=== PATIENT | male | born 1965 | race Caucasian/White ===

== ENCOUNTER 2019-07-01 18:12 | Emergency (ER) | payer SELFPAY ==
[2019-07-01 18:13] VITALS: BMI 44.2
--- NOTE | 2019-07-01 18:13 | ED_ITS ---
Documented by User: Erik Thomas DO 07/04/19 06:11 HPI - SOB/Dyspnea General: Chief Complaint: Shortness of Breath/Dyspnea Stated Complaint: SOB FEVER Time Seen by Provider: 07/01/19 18:12 History of Present Illness: HPI Narrative: 54 yo male who presents to the emergency room with a complaint of fever over the last 24 hours. He has myalgias but denies a headache he is developed a chronic cough in the same timeframe. He recently moved here from [place] about 3 days ago. He has not been coughing anything up. He has no chronic underlying respiratory problems and he has no chest pain he has no other symptoms. He has not been exerting himself at all lately. Denies any hemoptysis or purulent sputum. His moved here with him from [place] although she has not had any symptoms. MD elicited complaint: shortness of breath Associated symptoms: Deny abdominal pain, chest pain, fever(s), nausea, orthopnea or vomiting Review of Systems Const: Denies: fever, chills, body aches, change in appetite, fatigue or malaise ENMT: Denies: throat pain, ear pain, nasal discharge or nasal congestion Card: Denies: chest pain, edema, shortness of breath on exertion or shortness of breath when lying down Resp: Denies: shortness of breath, productive cough or non-productive cough GI: Denies: abdominal pain, nausea, vomiting, vomiting blood, coffee grounds in vomit, diarrhea, constipation, bloating, blood in stool or black tarry stool : Denies: flank pain, painful urination, urinary frequency or urinary urgency Skin/Breast: Denies: rash or itching [facility] ED PFSH: Social History Smoking and tobacco status: current every day smoker Physical Exam Const: COMMON NORMALS: no apparent distress GENERAL APPEARANCE: anxious ORIENTATION/CONSCIOUSNESS: Yes awake, Yes oriented to person, Yes oriented to place and Yes oriented to time HENMT: COMMON NORMALS: normocephalic, head/scalp atraumatic, hearing grossly normal bilaterally, external ears normal, EAC's normal, TM's normal bilaterally, nasal mucous membranes and turbinates normal, moist oral mucous membranes and oropharynx normal HEAD & SCALP: normocephalic and atraumatic NOSE: nasal mucous membranes and turbinates normal EXTERNAL EAR: Yes external ears normal EXTERNAL AUDITORY CANAL: EAC's normal TYMPANIC MEMBRANE: TM's normal bilaterally Eye: COMMON NORMALS: PERRL, EOMs intact bilaterally, conjunctivae normal and no scleral icterus CONJUNCTIVA: Yes conjunctivae normal PUPIL: Yes PERRL Neck/C-Spine: COMMON NORMALS: full ROM, no lymphadenopathy, supple and no JVD Lymph: LYMPHATIC: no lymphadenopathy noted and no lymphedema noted Resp: COMMON NORMALS: normal respiratory effort, no retractions, no use of accessory muscles and clear to auscultation bilaterally AUSCULTATION: clear to auscultation bilaterally Cardio: COMMON NORMALS: no JVD, regular rhythm and no murmurs RATE: tachycardic RHYTHM: regular rhythm GI: COMMON NORMALS: soft to palpation and no hepatosplenomegaly AUSCULTATION: Yes normoactive bowel sounds PALPATION: Yes soft, No tender, No guarding and Yes no hepatosplenomegaly Extremity: COMMON NORMALS: normal to inspection, normal capillary refill, no clubbing, cyanosis or edema, no calf tenderness and no pedal edema Neuro: SENSORIUM/ORIENTATION: Yes oriented to person, Yes oriented to place and Yes oriented to time Skin: COMMON NORMALS: no rashes or lesions noted GENERAL SKIN EXAM: no rashes or lesions noted Course Vital Signs: Vital signs: Vital Signs Temperature 102.1 F H 07/01/19 18:17 Pulse Rate 100 07/01/19 21:57 Respiratory Rate 19 H 07/01/19 21:57 Blood Pressure 146/97 07/01/19 21:57 Pulse Oximetry 95 07/01/19 21:57 MDM - SOB/Dyspnea MDM Narrative: Medical decision making narrative: Highly suspicion this particular patient for COVID given his temp. He was extremely anxious and I was doing his history and physical to the point he was making himself hyperventilate and nearly in tears. Coached him to try to slow his breathing down and calm down did advise him we would need him to keep the mask on since we are concerned about him having COVID and we had to mask the source. He was given a gram of Tylenol and 2 mg of Ativan. Care changed over to Dr. Campbell at change of shift. Lab Data: Labs: Lab Results 0407/01/19 07/01/19 Range/Units 18:47 18:58 19:00 WBC 12.0 H (4.0-10.0) 10^3/ uL RBC 4.90 (4.1-5.3) 10^6/u L Hgb 14.1 (11.7-16.6) g/dL Hct 43.3 (42.0-52.0) % MCV 88.4 (80-94) fL MCH 28.8 (28.0-34.0) pg MCHC 32.6 (30.0-36.0) g/dL RDW 14.7 (12.1-15.1) % Plt Count 238 (130-400) 10^3/c mm MPV 9.4 (7.4-10.4) fL Neut % (Auto) 79.2 % Lymph % (Auto) 9.3 % Bibb % (Auto) 9.4 % Eos % (Auto) 1.7 % Baso % (Auto) 0.2 % Neut # (Auto) 9.5 H (1.8-7.7) 10^3/u L Lymph # (Auto) 1.1 (0.8-4.8) 10^3/u L Bibb # (Auto) 1.1 H (0.2-0.9) 10^3/u L Eos # (Auto) 0.2 (0.0-0.8) 10^3/u L Baso # (Auto) 0.0 (0.0-0.1) 10^3/u L Nucleated RBC % (a uto) 0 % Nucleated RBCs # 0.0 /100WBC Sodium 134 L (136-145) mmol/L Potassium 3.7 (3.5-5.1) mmol/L Chloride 100 (98-107) mmol/L Carbon Dioxide 21 L (22-29) mmol/L Anion Gap 16.7 (5-19) BUN 8 (6-20) mg/dL Creatinine 0.9 (0.7-1.2) mg/dL GFR Calculation 87.6 L (90-130) mL/min Glucose 106 (65-115) mg/dL Calculated Osmolal ity 274 L (285-295) mOsm/k g Lactic Acid (0.5-2.2) mmol/L Calcium 9.1 (8.5-10.5) mg/dL Total Bilirubin 0.6 (0.15-1.2) mg/dL AST 19 (0-40) U/L ALT 15 (0-41) U/L Alkaline Phosphata se 77 (40-130) IU/L C-Reactive Protein 36.1 H (0.0-4.9) mg/L Total Protein 7.1 (6.6-8.7) g/dL Albumin 4.0 (3.5-5.2) g/dL Globulin 3.1 (1.3-4.6) g/dL Nasal/Oral COVID-1 9 PCR Influenza Type A A g Negative (Negative) Influenza Type B A g Negative (Negative) 07/01/19 07/01/19 Range/Units 19:00 20:27 WBC (4.0-10.0) 10^3/ uL RBC (4.1-5.3) 10^6/u L Hgb (11.7-16.6) g/dL Hct (42.0-52.0) % MCV (80-94) fL MCH (28.0-34.0) pg MCHC (30.0-36.0) g/dL RDW (12.1-15.1) % Plt Count (130-400) 10^3/c mm MPV (7.4-10.4) fL Neut % (Auto) % Lymph % (Auto) % Bibb % (Auto) % Eos % (Auto) % Baso % (Auto) % Neut # (Auto) (1.8-7.7) 10^3/u L Lymph # (Auto) (0.8-4.8) 10^3/u L Bibb # (Auto) (0.2-0.9) 10^3/u L Eos # (Auto) (0.0-0.8) 10^3/u L Baso # (Auto) (0.0-0.1) 10^3/u L Nucleated RBC % (a uto) % Nucleated RBCs # /100WBC Sodium (136-145) mmol/L Potassium (3.5-5.1) mmol/L Chloride (98-107) mmol/L Carbon Dioxide (22-29) mmol/L Anion Gap (5-19) BUN (6-20) mg/dL Creatinine (0.7-1.2) mg/dL GFR Calculation (90-130) mL/min Glucose (65-115) mg/dL Calculated Osmolal ity (285-295) mOsm/k g Lactic Acid 1.6 (0.5-2.2) mmol/L Calcium (8.5-10.5) mg/dL Total Bilirubin (0.15-1.2) mg/dL AST (0-40) U/L ALT (0-41) U/L Alkaline Phosphata se (40-130) IU/L C-Reactive Protein (0.0-4.9) mg/L Total Protein (6.6-8.7) g/dL Albumin (3.5-5.2) g/dL Globulin (1.3-4.6) g/dL Nasal/Oral COVID-1 9 PCR Negative Influenza Type A A g (Negative) Influenza Type B A g (Negative) Discharge Plan Discharge Patient Disposition: Home, Self-Care Clinical Impression: Bronchitis Condition: Stable Prescriptions: New doxycycline hyclate 100 mg capsule 100 mg PO BID 10 Days Qty: 20 RF: 0 Tessalon Perles 100 mg capsule 100 mg PO TID PRN (Reason: cough) Qty: 30 RF: 0 Discharge Orders: Discharge Order (Routine); Ordered 07/01/19 Ordered By: Sarahi Will Referrals: Adrienne Rico DO [Physician] - 1-3 days Discharge Diet: Advance as tolerated Discharge Activity: Increase activity as tolerated Patient Instructions: Acute Bronchitis (ED) Activity Restrictions/Additional Instructions: Please return to the ER immediately for any of the signs or symptoms listed on your discharge instruction sheets, worsening/changing of your symptoms, you are not getting better as quickly as expected, or for ANY other cause or concerns. You will be called regarding your COVID-19 test as soon as a result is available. Be certain to quarantine yourself at home until the results of this test are given to you. If you test positive further and instructions will be given you. Discharge Date/Time: 07/01/19 21:58 Sign Out Sign Out Data: Patient Sign Out occurred on 07/01/19 at 19:48. Patient's care was discussed, and care was transferred from to Sarahi Will. Coding Level of Care Code ED Welding Equipment Sales Representative for Chg Fwd Exam Comprehensive Documented by User: Sarahi Triplett Nicolette 07/01/19 21:00 HPI - SOB/Dyspnea General: Chief Complaint: Shortness of Breath/Dyspnea Stated Complaint: SOB FEVER Time Seen by Provider: 07/01/19 18:12 PFSH ED PFSH: Social History Smoking and tobacco status: current every day smoker Course Vital Signs: Vital signs: Vital Signs Temperature 102.1 F H 07/01/19 18:17 Pulse Rate 100 07/01/19 21:57 Respiratory Rate 19 H 07/01/19 21:57 Blood Pressure 146/97 07/01/19 21:57 Pulse Oximetry 95 07/01/19 21:57 MDM - SOB/Dyspnea MDM Narrative: Medical decision making narrative: 2100 -Case turned over to me at change of shift from Dr. Thomas. On reexamination at this time the patient is without complaint, his fever is gone and his cough is stopped. He states of all his complaints the cough was the most concerning. His chest x-ray is clear and he is not hypoxic. He does have a fever so I will place him on doxycycline. A coronavirus test was sent and he understands he will be were notified of the result tomorrow. He will quarantine himself at home until the result is known. If he does test positive we will instruct him further. He denies any other questions or concerns and he agrees with this plan. Lab Data: Labs: Lab Results 07/01/19 07/01/19 07/01/19 Range/Units 18:47 18:58 19:00 WBC 12.0 H (4.0-10.0) 10^3/ uL RBC 4.90 (4.1-5.3) 10^6/u L Hgb 14.1 (11.7-16.6) g/dL Hct 43.3 (42.0-52.0) % MCV 88.4 (80-94) fL MCH 28.8 (28.0-34.0) pg MCHC 32.6 (30.0-36.0) g/dL RDW 14.7 (12.1-15.1) % Plt Count 238 (130-400) 10^3/c mm MPV 9.4 (7.4-10.4) fL Neut % (Auto) 79.2 % Lymph % (Auto) 9.3 % Bibb % (Auto) 9.4 % Eos % (Auto) 1.7 % Baso % (Auto) 0.2 % Neut # (Auto) 9.5 H (1.8-7.7) 10^3/u L Lymph # (Auto) 1.1 (0.8-4.8) 10^3/u L Bibb # (Auto) 1.1 H (0.2-0.9) 10^3/u L Eos # (Auto) 0.2 (0.0-0.8) 10^3/u L Baso # (Auto) 0.0 (0.0-0.1) 10^3/u L Nucleated RBC % (a uto) 0 % Nucleated RBCs # 0.0 /100WBC Sodium 134 L (136-145) mmol/L Potassium 3.7 (3.5-5.1) mmol/L Chloride 100 (98-107) mmol/L Carbon Dioxide 21 L (22-29) mmol/L Anion Gap 16.7 (5-19) BUN 8 (6-20) mg/dL Creatinine 0.9 (0.7-1.2) mg/dL GFR Calculation 87.6 L (90-130) mL/min Glucose 106 (65-115) mg/dL Calculated Osmolal ity 274 L (285-295) mOsm/k g Lactic Acid (0.5-2.2) mmol/L Calcium 9.1 (8.5-10.5) mg/dL Total Bilirubin 0.6 (0.15-1.2) mg/dL AST 19 (0-40) U/L ALT 15 (0-41) U/L Alkaline Phosphata se 77 (40-130) IU/L C-Reactive Protein 36.1 H (0.0-4.9) mg/L Total Protein 7.1 (6.6-8.7) g/dL Albumin 4.0 (3.5-5.2) g/dL Globulin 3.1 (1.3-4.6) g/dL Nasal/Oral COVID-1 9 PCR Influenza Type A A g Negative (Negative) Influenza Type B A g Negative (Negative) 07/01/19 07/01/19 Range/Units 19:00 20:27 WBC (4.0-10.0) 10^3/ uL RBC (4.1-5.3) 10^6/u L Hgb (11.7-16.6) g/dL Hct (42.0-52.0) % MCV (80-94) fL MCH (28.0-34.0) pg MCHC (30.0-36.0) g/dL RDW (12.1-15.1) % Plt Count (130-400) 10^3/c mm MPV (7.4-10.4) fL Neut % (Auto) % Lymph % (Auto) % Bibb % (Auto) % Eos % (Auto) % Baso % (Auto) % Neut # (Auto) (1.8-7.7) 10^3/u L Lymph # (Auto) (0.8-4.8) 10^3/u L Bibb # (Auto) (0.2-0.9) 10^3/u L Eos # (Auto) (0.0-0.8) 10^3/u L Baso # (Auto) (0.0-0.1) 10^3/u L Nucleated RBC % (a uto) % Nucleated RBCs # /100WBC Sodium (136-145) mmol/L Potassium (3.5-5.1) mmol/L Chloride (98-107) mmol/L Carbon Dioxide (22-29) mmol/L Anion Gap (5-19) BUN (6-20) mg/dL Creatinine (0.7-1.2) mg/dL GFR Calculation (90-130) mL/min Glucose (65-115) mg/dL Calculated Osmolal ity (285-295) mOsm/k g Lactic Acid 1.6 (0.5-2.2) mmol/L Calcium (8.5-10.5) mg/dL Total Bilirubin (0.15-1.2) mg/dL AST (0-40) U/L ALT (0-41) U/L Alkaline Phosphata se (40-130) IU/L C-Reactive Protein (0.0-4.9) mg/L Total Protein (6.6-8.7) g/dL Albumin (3.5-5.2) g/dL Globulin (1.3-4.6) g/dL Nasal/Oral COVID-1 9 PCR Negative Influenza Type A A g (Negative) Influenza Type B A g (Negative) Discharge Plan Discharge Patient Disposition: Home, Self-Care Clinical Impression: Bronchitis Condition: Stable Prescriptions: New doxycycline hyclate 100 mg capsule 100 mg PO BID 10 Days Qty: 20 RF: 0 Tessalon Perles 100 mg capsule 100 mg PO TID PRN (Reason: cough) Qty: 30 RF: 0 Discharge Orders: Discharge Order (Routine); Ordered 07/01/19 Ordered By: Sarahi Will Referrals: Adrienne Rico DO [Physician] - 1-3 days Discharge Diet: Advance as tolerated Discharge Activity: Increase activity as tolerated Patient Instructions: Acute Bronchitis (ED) Activity Restrictions/Additional Instructions: Please return to the ER immediately for any of the signs or symptoms listed on your discharge instruction sheets, worsening/changing of your symptoms, you are not getting better as quickly as expected, or for ANY other cause or concerns. You will be called regarding your COVID-19 test as soon as a result is available. Be certain to quarantine yourself at home until the results of this test are given to you. If you test positive further and instructions will be given you. Discharge Date/Time: 07/01/19 21:58 Sign Out Sign Out Data: Patient Sign Out occurred on 07/01/19 at 19:48. Patient's care was discussed, and care was transferred from to Sarahi Will. Coding Level of Care Code ED Welding Equipment Sales Representative for Chintan Fwd Exam Comprehensive
--- NOTE | 2019-07-01 18:16 | XR_ITS ---
WS: [id number] PORTABLE CHEST HISTORY: dyspnea/cough COMPARISON: None available. Lungs are clear and well expanded. No pleural effusion or pneumothorax. Cardiac size: Normal. Mediastinum/Aorta: Normal mediastinum. No osseous abnormality seen. XR/XR chest 1V portable [id number] IMPRESSION: Unremarkable portable chest.
--- NOTE | 2019-07-01 18:16 | ECG_ITS ---
Measurements Intervals [place] Rate: 112 P: 58 MS: 136 QRS: -29 QRSD: 96 T: 74 QT: 336 QTc: 459 SINUS TACHYCARDIA BORDERLINE LEFT AXIS DEVIATION [QRS AXIS < -20] MINIMAL VOLTAGE CRITERIA FOR LVH, CONSIDER NORMAL VARIANT [MEETS CRITERIA IN ONE OF: R(aVL), S(V1), R(V5), R(V5/V6)+S(V1)] NONSPECIFIC ST & T-WAVE ABNORMALITY ABNORMAL RHYTHM ECG No previous ECG available for comparison Electronically Signed On 07-02-2019 18:08:03 CDT by Madalyn Fu M.D. [id number]
[2019-07-01 18:17] VITALS: BP 173/123; PULSE 111; RESP 20; TEMP 38.9; O2SAT 95
[2019-07-01] MEDS: LORazepam 2 mg/mL INJ 1 mL 1 MG IVP ×2 (18:39→19:50)
[2019-07-01] MEDS: acetaminophen 500 mg Tablet 1000 MG PO (18:40)
[2019-07-01 19:11] LABS: Basophils % 0.2 %; Eosinophils # 0.2 10^3/uL (0.0-0.8); Eosinophils % 1.7 %; Hematocrit 43.3 % (42.0-52.0); Hemoglobin 14.1 g/dL (11.7-16.6); Lymphocytes # 1.1 10^3/uL (0.8-4.8); Lymphocytes % 9.3 %; Mean Corpuscular HGB Conc 32.6 g/dL (30.0-36.0); Mean Corpuscular Hemoglobin 28.8 pg (28.0-34.0); Mean Corpuscular Volume 88.4 fL (80-94); Mean Platelet Volume 9.4 fL (7.4-10.4); Monocytes # 1.1 10^3/uL (0.2-0.9); Monocytes % 9.4 %; Neutrophils # 9.5 10^3/uL (1.8-7.7); Neutrophils % 79.2 %; Nucleated Red Blood Cells % 0 %; Platelet Count 238 10^3/cmm (130-400); Red Cell Distribution Width 14.7 % (12.1-15.1)
[2019-07-01 19:53] LABS: Influenza A by IFA Negative (Negative); Influenza B by IFA Negative (Negative)
[2019-07-01 20:44] LABS: Alanine Aminotransferase 15 U/L (0-41); Alkaline Phosphatase 77 IU/L (40-130); Anion Gap 16.7 (5-19); Aspartate Amino Transferase 19 U/L (0-40); Blood Urea Nitrogen 8 mg/dL (6-20); Calcium 9.1 mg/dL (8.5-10.5); Carbon Dioxide 21 mmol/L (22-29); Chloride 100 mmol/L (98-107); Globulin 3.1 g/dL (1.3-4.6); Glomerular Filtration Rate 87.6 mL/min (90-130); Glucose 106 mg/dL (65-115); Osmolality Calculated 274 mOsm/kg (285-295); Potassium 3.7 mmol/L (3.5-5.1); Sodium 134 mmol/L (136-145); Total Bilirubin 0.6 mg/dL (0.15-1.2); Total Protein 7.1 g/dL (6.6-8.7)
[2019-07-01 20:45] LABS: Lactic Sepsis W/Reflex 1.6 mmol/L (0.5-2.2)
[2019-07-01 21:23] LABS: C Reactive Protein 36.1 mg/L (0.0-4.9)
[2019-07-01] MEDS: doxycycline 100 mg Tablet 200 MG PO (21:45)
[2019-07-01 21:57] VITALS: BP 146/97; PULSE 100; RESP 19; O2SAT 95
[2019-07-02 14:04] LABS: Coronavirus Lab Test PTC Negative
== END 2019-07-01 21:58 | disposition home or self-care (01) ==
PROVIDERS: Family Medicine; Emergency Provider Emergency Medicine
DX: J40 Bronchitis, not specified as acute or chronic (principal); F17.210 Nicotine dependence, cigarettes, uncomplicated
CPT/HCPCS: 12345; 71045; 80053; 83605; 85025; 86140; 87040; 87635; 87804; 93005; 96374; 96375; 99283; 99284; J2060

== ENCOUNTER 2019-10-24 16:42 | Emergency (ER) | payer SELFPAY ==
[2019-10-24 16:49] VITALS: BP 163/110; PULSE 110; RESP 16; TEMP 36.8; O2SAT 95; BMI 33.6
--- NOTE | 2019-10-24 17:50 | ECG_ITS ---
[facility] Test Date: 2019-10-24 Pat Name: Amadou Pan Department: Room: Gender: Male Electrotyper Helper: : 1965 Requested By: Sarahi Triplett Order Number: [id number] Toribio MD: Giovanna Rendon M.D. Measurements Intervals [place] Rate: 101 P: 52 LA: 128 QRS: -35 QRSD: 98 T: 74 QT: 338 QTc: 440 Interpretive Statements SINUS TACHYCARDIA MARKED LEFT AXIS DEVIATION [QRS AXIS < -30] LEFT VENTRICULAR HYPERTROPHY AND ST-T CHANGE [VOLTAGE CRITERIA PLUS ST/T ABNORMALITY] Compared to ECG 07/01/2019 19:02:12 ST (T wave) deviation now present T-wave abnormality no longer present Electronically Signed On 10-24-2019 23:04:49 CDT by Giovanna Rendon M.D. [id number]
--- NOTE | 2019-10-24 18:21 | ED_ITS ---
HPI - GI Bleed General: Chief complaint: GI Bleed Stated complaint: blood in stool Time Seen by Provider: 10/24/19 18:13 History of Present Illness: HPI Narrative: Patient is a 54-year-old male who comes to the ED with blood in stool. Patient says this is been a chronic problem and has been going on for the last 6 months. He describes the blood in his stool is bright red and is usually on the toilet paper when he wipes. He says he has not had a formed solid stool in a long time and mostly feels the urge to have a bowel movement and when he sits to he has a little bit of blood. Endorses having some rectal pain when sitting down for a bowel movement. Denies constipation or any straining when he has a bowel movement. Denies nausea/vomiting, chills, chest pain, shortness of breath, abdominal pain, dysuria and hematuria. Associated symptoms: Denies abdominal pain, chills, fever(s), headache(s), nausea, rash or vomiting Review of Systems Const: Denies: fever(s), chills or fatigue Eyes: Denies: change in vision or eye discomfort ENMT: Denies: throat pain, odynophagia, nasal discharge or nasal congestion Card: Denies: chest pain, palpitations, edema, swelling of feet/ankles, dyspnea on exertion or orthopnea Resp: Denies: dyspnea, productive cough or non-productive cough GI: Reports: rectal pain (Sometimes when having a bowel movement.) and hematochezia (Red blood); Denies: abdominal pain, nausea, vomiting, diarrhea, constipation or melena : Denies: flank pain, difficulty urinating, dysuria or hematuria Musc: Denies: neck pain, back pain or extremity swelling Skin/Breast: Denies: rash or new lesions Neuro: Denies: headache(s), numbness in extremities or weakness in extremities PFS ED PFSH: Social History Smoking and tobacco status: current every day smoker Physical Exam Const: COMMON NORMALS: no acute distress, patient oriented x3 and alert GEN ERAL APPEARANCE: cooperative and comfortable NUTRITIONAL APPEARANCE: obese centrally obese HENMT: COMMON NORMALS: normocephalic HEAD & SCALP: normocephalic MOUTH: Normal oral and palatal mucosa present THROAT: posterior oropharynx normal and uvula midline Neck/C-Spine: COMMON NORMALS: supple GENERAL: Yes normal visual inspection Resp: COMMON NORMALS: normal respiratory effort, No retractions, No use of accessory muscles and clear to auscultation bilaterally AUSCULTATION: clear to auscultation bilaterally Cardio: COMMON NORMALS: regular rate, regular rhythm, S1 normal heart sound present, S2 normal heart sound present, No gallops present (Cardio), No clicks present (Cardio), No murmurs present (Cardio) and Peripheral pulses 2+ throughout RATE: regular rate RHYTHM: regular rhythm HEART SOUNDS: S1 normal heart sound present and S2 normal heart sound present PERIPHERAL PULSES: Peripheral pulses 2+ throughout GI: COMMON NORMALS: Normal to inspection, nondistended, normoactive bowel sounds present, Soft to palpation, non-tender and no masses INSPECTION: Yes central obesity PALPATION: Yes Soft to palpation OTHER: Patient had no pain upon palpation of the abdomen. : COMMON NORMALS: Yes no CVA tenderness BLADDER/KIDNEY EXAM: Yes no CVA tenderness Back/Pelvis: COMMON NORMALS: no CVA tenderness Extremity: COMMON NORMALS: normal to inspection and no pedal edema Neuro: COMMON NORMALS: patient oriented x3 and moves all extremities SENSORIUM/ORIENTATION: Yes alert Skin: COMMON NORMALS: no rashes or lesions noted GENERAL SKIN EXAM: no rashes or lesions noted and dry skin Procedures Stool Hemoccult Procedural Steps Taken: stool placed in appropriate test area, developer placed on stool and control areas and controls appropriately positive and negative Hemoccult result: positive Additional Comments: Patient had a bowel movement here in the ED and we collected stool sample and ran Hemoccult test on it. No visible red blood seen in stool. Small formed pellets with some liquid stool. Brown in color. Course Vital Signs: Vital signs: Vital Signs Temperature 98.2 F 10/24/19 16:49 Pulse Rate 72 10/24/19 20:54 Respiratory Rate 17 10/24/19 20:54 Blood Pressure 173/114 10/24/19 20:54 Pulse Oximetry 98 10/24/19 20:54 MDM - GI Bleed MDM Narrative: Medical decision making narrative: Patient is a 54-year-old male who comes to the ED with rectal pain and red blood in stool. Stool Hemoccult test was positive when sampling stool. White blood cell count 11.5. Hemoglobin 14.4. Rest of CBC, CMP were unremarkable. H. pylori was negative. Lipase 38. CT of the abdomen showed proctitis. Patient was discharged with a prescription for prednisone, Flagyl and Cipro. Follow-up with PCP in 7 to 10 days. Return to ED precautions given. Patient was told to talk with his PCP about getting a colonoscopy set up this year. Patient understood and agreed with plan. Lab Data: Attestation: I reviewed the patient's lab results. Labs: Lab Results 10/24/19 10/24/19 10/24/19 Range/Units 18:10 18:10 18:10 WBC 11.5 H (4.0-10.0) 10^3/ uL RBC 5.07 (4.1-5.3) 10^6/u L Hgb 14.4 (11.7-16.6) g/dL Hct 44.5 (42.0-52.0) % MCV 87.8 (80-94) fL MCH 28.4 (28.0-34.0) pg MCHC 32.4 (30.0-36.0) g/dL RDW 14.0 (12.1-15.1) % Plt Count 331 (130-400) 10^3/c mm MPV 9.1 (7.4-10.4) fL Neut % (Auto) 64.2 % Lymph % (Auto) 24.1 % Perkins % (Auto) 7.2 % Eos % (Auto) 3.7 % Baso % (Auto) 0.4 % Neut # (Auto) 7.34 (1.8-7.7) 10^3/u L Lymph # (Auto) 2.8 (0.8-4.8) 10^3/u L Perkins # (Auto) 0.8 (0.2-0.9) 10^3/u L Eos # (Auto) 0.4 (0.0-0.8) 10^3/u L Baso # (Auto) 0.1 (0.0-0.1) 10^3/u L Nucleated RBC % (a uto) 0 % Nucleated RBCs # 0.0 /100WBC PT 11.80 L (12.1-14.9) SECO NDS INR 0.85 (0.8-1.2) APTT 26.7 (23.9-36.7) SECO NDS Sodium 139 (136-145) mmol/L Potassium 3.8 (3.5-5.1) mmol/L Chloride 105 (98-107) mmol/L Carbon Dioxide 23 (22-29) mmol/L Anion Gap 14.8 (5-19) BUN 12 (6-20) mg/dL Creatinine 0.8 (0.7-1.2) mg/dL GFR Calculation 100.4 (90-130) mL/min Glucose 139 H (65-115) mg/dL Calculated Osmolal ity 286 (285-295) mOsm/k g Calcium 9.1 (8.5-10.5) mg/dL Total Bilirubin 0.2 (0.15-1.2) mg/dL AST 12 (0-40) U/L ALT 15 (0-41) U/L Alkaline Phosphata se 69 (40-130) IU/L Total Protein 7.2 (6.6-8.7) g/dL Albumin 4.3 (3.5-5.2) g/dL Globulin 2.9 (1.3-4.6) g/dL Lipase 38 (13-60) U/L H. pylori IgG Anti body (Negative) Blood Type Rho(D) Type Antibody Screen 10/24/19 10/24/19 Range/Units 18:10 18:10 WBC (4.0-10.0) 10^3/ uL RBC (4.1-5.3) 10^6/u L Hgb (11.7-16.6) g/dL Hct (42.0-52.0) % MCV (80-94) fL MCH (28.0-34.0) pg MCHC (30.0-36.0) g/dL RDW (12.1-15.1) % Plt Count (130-400) 10^3/c mm MPV (7.4-10.4) fL Neut % (Auto) % Lymph % (Auto) % Perkins % (Auto) % Eos % (Auto) % Baso % (Auto) % Neut # (Auto) (1.8-7.7) 10^3/u L Lymph # (Auto) (0.8-4.8) 10^3/u L Perkins # (Auto) (0.2-0.9) 10^3/u L Eos # (Auto) (0.0-0.8) 10^3/u L Baso # (Auto) (0.0-0.1) 10^3/u L Nucleated RBC % (a uto) % Nucleated RBCs # /100WBC PT (12.1-14.9) SECO NDS INR (0.8-1.2) APTT (23.9-36.7) SECO NDS Sodium (136-145) mmol/L Potassium (3.5-5.1) mmol/L Chloride (98-107) mmol/L Carbon Dioxide (22-29) mmol/L Anion Gap (5-19) BUN (6-20) mg/dL Creatinine (0.7-1.2) mg/dL GFR Calculation (90-130) mL/min Glucose (65-115) mg/dL Calculated Osmolal ity (285-295) mOsm/k g Calcium (8.5-10.5) mg/dL Total Bilirubin (0.15-1.2) mg/dL AST (0-40) U/L ALT (0-41) U/L Alkaline Phosphata se (40-130) IU/L Total Protein (6.6-8.7) g/dL Albumin (3.5-5.2) g/dL Globulin (1.3-4.6) g/dL Lipase (13-60) U/L H. pylori IgG Anti body Negative (Negative) Blood Type O Positive Rho(D) Type Positive Antibody Screen Negative Imaging Data^: CT Abd/Pel: Attestation: I personally reviewed and interpreted this imaging study as follows: Radiologist's impression: [address] [place] [address] CT Scan Report Signed Patient: Amadou Pan Unit #: [id number] : 1965 Age/Sex: 54 / M ADM Date: 10/24/19 Loc: ER Room/Bed: Attending Dr: Ordering Provider/Ordering MD: Jacob Shah Date of Service: 10/24/19 Procedure(s): CT abdomen pelvis w con* [id number] Accession Number(s): [id number] Report Number: [id number] PROCEDURE INFORMATION: Exam: CT Abdomen And Pelvis With Contrast Exam date and time: 10/24/2019 7:45 PM Age: 54 years old Clinical indication: Other: Blood in stool; Other: Rectal pain; Additional info: Blood in stool with rectal area pain TECHNIQUE: Imaging protocol: Computed tomography of the abdomen and pelvis with intravenous contrast. Radiation optimization: All CT scans at this facility use at least one of these dose optimization techniques: automated exposure control; mA and/or kV adjustment per patient size (includes targeted exams where dose is matched to clinical indication); or iterative reconstruction. Contrast material: OMNI 300; Contrast volume: 95 ml; Contrast route: INTRAVENOUS (IV); COMPARISON: No relevant prior studies available. RADIATION DOSE METRICS: Total DLP (mGy-cm): 1605.02 FINDINGS: Liver: Normal. No mass. Gallbladder and bile ducts: Normal. No calcified stones. No ductal dilation. Pancreas: Normal. No ductal dilation. Spleen: Normal. No splenomegaly. Adrenals: Normal. No mass. Kidneys and ureters: Right renal hypodensity measuring < 1.0 cm , too small to further characterize. Left renal simple cyst measuring >1.0 cm. One or more focal cortical defects in the left kidney, representing sequela from previous infection or infarction. Stomach and bowel: Bowel wall thickening in the rectum with inflammation and perihilar rectal fat and shotty reactive adenopathy consistent with mild to moderate proctitis. Appendix: Normal appendix. Intraperitoneal space: Unremarkable. No free air. No significant fluid collection. Vasculature: Calcification of the abdominal aorta and/or iliac arteries consistent with atherosclerotic vessel disease. One or more calcified pelvic phleboliths. Lymph nodes: Unremarkable. No enlarged lymph nodes. Bladder: Unremarkable as visualized. Reproductive: Unremarkable as visualized. Bones/joints: Moderate to severe multilevel spine degenerative changes including degenerative disc disease, spondylosis and facet degenerative changes. Soft tissues: Unremarkable. CT/CT abdomen pelvis w con* [id number] IMPRESSION: Bowel wall thickening in the rectum with inflammation and perihilar rectal fat and shotty reactive adenopathy consistent with mild to moderate proctitis. COMMENTS: Consistent with the [employer]'s Incidental Findings Committee white paper (J Am Sukhjinder Radiol 2018): Any incidental renal lesion less than 1.0 cm or classified as too small to characterize, or any incidental cystic renal lesion characterized as simple-appearing, is likely benign. No follow-up imaging is recommended for these lesions per consensus recommendations based on imaging criteria. Radiation Dose CTDIVOL = (mGy): DLP = 1605.02 (mGy-cm) Dictated By: Anish Mckeon MD Signed By: Anish Mckeon MD Signed Date/Time: 10/24/192014 DD/ 12 EKG Data^: EKG 1: Attestation: I personally reviewed and interpreted this EKG as follows: EKG interpretation date: 10/24/19 Interpretation: Sinus tachycardia, 101 bpm, no ST segment elevation or depression seen. Discharge Plan Discharge Patient Disposition: Home Clinical Impression: Proctitis Condition: Stable Prescriptions: New prednisone 20 mg tablet 20 mg PO TID 5 Days Qty: 15 RF: 0 Flagyl 500 mg tablet 500 mg PO Q6H 7 Days Qty: 28 RF: 0 ciprofloxacin HCl 750 mg tablet 750 mg PO Q12H 7 Days Qty: 14 RF: 0 No Action Tessalon Perles 100 mg capsule 100 mg PO TID PRN (Reason: cough) Qty: 30 RF: 0 Discharge Orders: Discharge Order (Routine); Ordered 10/24/19 Ordered By: Jacob Shah Discharge Diet: Regular Discharge Activity: Resume usual activity Patient Instructions: Proctitis (ED) Activity Restrictions/Additional Instructions: Follow-up with medical provider as directed in 5-7 days. Also, talk to your primary care provider to get your referral for colonoscopy. Take medications as prescribed. Take [id number] Tylenol or ibuprofen for any pain. Return to the ER or your medical provider if condition worsens. Please read and understand discharge instructions. If any questions, please ask. Discharge Date/Time: 10/24/19 20:56 Coding Level of Care Code ED Rum Processing Operator for Chg Fwd Exam Comprehensive
[2019-10-24 18:28] LABS: Basophils # 0.1 10^3/uL (0.0-0.1); Basophils % 0.4 %; Eosinophils # 0.4 10^3/uL (0.0-0.8); Eosinophils % 3.7 %; Hematocrit 44.5 % (42.0-52.0); Hemoglobin 14.4 g/dL (11.7-16.6); Lymphocytes # 2.8 10^3/uL (0.8-4.8); Lymphocytes % 24.1 %; Mean Corpuscular HGB Conc 32.4 g/dL (30.0-36.0); Mean Corpuscular Hemoglobin 28.4 pg (28.0-34.0); Mean Corpuscular Volume 87.8 fL (80-94); Mean Platelet Volume 9.1 fL (7.4-10.4); Monocytes # 0.8 10^3/uL (0.2-0.9); Monocytes % 7.2 %; Neutrophils # 7.34 10^3/uL (1.8-7.7); Neutrophils % 64.2 %; Nucleated Red Blood Cells % 0 %; Platelet Count 331 10^3/cmm (130-400); Red Blood Count 5.07 10^6/uL (4.1-5.3); White Blood Count 11.5 10^3/uL (4.0-10.0)
[2019-10-24 18:46] LABS: Alanine Aminotransferase 15 U/L (0-41); Albumin Level 4.3 g/dL (3.5-5.2); Alkaline Phosphatase 69 IU/L (40-130); Anion Gap 14.8 (5-19); Aspartate Amino Transferase 12 U/L (0-40); Blood Urea Nitrogen 12 mg/dL (6-20); Calcium 9.1 mg/dL (8.5-10.5); Carbon Dioxide 23 mmol/L (22-29); Chloride 105 mmol/L (98-107); Globulin 2.9 g/dL (1.3-4.6); Glomerular Filtration Rate 100.4 mL/min (90-130); Glucose 139 mg/dL (65-115); INR 0.85 (0.8-1.2); Lipase 38 U/L (13-60); Osmolality Calculated 286 mOsm/kg (285-295); Potassium 3.8 mmol/L (3.5-5.1); Sodium 139 mmol/L (136-145); Total Bilirubin 0.2 mg/dL (0.15-1.2); Total Protein 7.2 g/dL (6.6-8.7)
[2019-10-24 18:47] LABS: Partial Thromboplastin Time 26.7 SECONDS (23.9-36.7)
[2019-10-24 18:56] LABS: H. Pylori IgG Antibody Negative (Negative)
--- NOTE | 2019-10-24 19:41 | CTR_ITS ---
PROCEDURE INFORMATION: Exam: CT Abdomen And Pelvis With Contrast Exam date and time: 10/24/2019 7:45 PM Age: 54 years old Clinical indication: Other: Blood in stool; Other: Rectal pain; Additional info: Blood in stool with rectal area pain TECHNIQUE: Imaging protocol: Computed tomography of the abdomen and pelvis with intravenous contrast. Radiation optimization: All CT scans at this facility use at least one of these dose optimization techniques: automated exposure control; mA and/or kV adjustment per patient size (includes targeted exams where dose is matched to clinical indication); or iterative reconstruction. Contrast material: OMNI 300; Contrast volume: 95 ml; Contrast route: INTRAVENOUS (IV); COMPARISON: No relevant prior studies available. RADIATION DOSE METRICS: Total DLP (mGy-cm): 1605.02 FINDINGS: Liver: Normal. No mass. Gallbladder and bile ducts: Normal. No calcified stones. No ductal dilation. Pancreas: Normal. No ductal dilation. Spleen: Normal. No splenomegaly. Adrenals: Normal. No mass. Kidneys and ureters: Right renal hypodensity measuring < 1.0 cm , too small to further characterize. Left renal simple cyst measuring >1.0 cm. One or more focal cortical defects in the left kidney, representing sequela from previous infection or infarction. Stomach and bowel: Bowel wall thickening in the rectum with inflammation and perihilar rectal fat and shotty reactive adenopathy consistent with mild to moderate proctitis. Appendix: Normal appendix. Intraperitoneal space: Unremarkable. No free air. No significant fluid collection. Vasculature: Calcification of the abdominal aorta and/or iliac arteries consistent with atherosclerotic vessel disease. One or more calcified pelvic phleboliths. Lymph nodes: Unremarkable. No enlarged lymph nodes. Bladder: Unremarkable as visualized. Reproductive: Unremarkable as visualized. Bones/joints: Moderate to severe multilevel spine degenerative changes including degenerative disc disease, spondylosis and facet degenerative changes. Soft tissues: Unremarkable. CT/CT abdomen pelvis w con* [id number] IMPRESSION: Bowel wall thickening in the rectum with inflammation and perihilar rectal fat and shotty reactive adenopathy consistent with mild to moderate proctitis. COMMENTS: Consistent with the [employer]'s Incidental Findings Committee white paper (J Am Sukhjinder Radiol 2018): Any incidental renal lesion less than 1.0 cm or classified as too small to characterize, or any incidental cystic renal lesion characterized as simple-appearing, is likely benign. No follow-up imaging is recommended for these lesions per consensus recommendations based on imaging criteria. Radiation Dose CTDIVOL = (mGy): DLP = 1605.02 (mGy-cm)
[2019-10-24] MEDS: iohexol 300 mg/mL 100 mL Btl IV (19:54)
[2019-10-24] MEDS: ondansetron 2 mg/ML SDV 2 mL 4 MG IVP (20:05)
[2019-10-24 20:06] VITALS: RESP 18; O2SAT 98
[2019-10-24] MEDS: morphine 4 mg/mL SDV 1 mL 2 MG IVP (20:06)
[2019-10-24] MEDS: metroNIDAZOLE 500 MG Tablet PO (20:53)
[2019-10-24] MEDS: ciprofloxacin 500 mg Tablet PO (20:53)
[2019-10-24 20:54] VITALS: BP 173/114; PULSE 72; RESP 17; O2SAT 98
[2019-10-24] MEDS: predniSONE 20 mg Tablet 60 MG PO (20:54)
== END 2019-10-24 20:56 | disposition home or self-care (01) ==
PROVIDERS: Emergency Medicine; Emergency Provider Physician Assistant
DX: K62.89 Other specified diseases of anus and rectum (principal); F17.210 Nicotine dependence, cigarettes, uncomplicated
CPT/HCPCS: 12345; 74177; 80053; 82272; 83690; 85025; 85610; 85730; 86677; 86850; 86900; 93005; 96361; 96374; 96375; 99283; 99284; J2270; J2405; J7512; Q9967

== ENCOUNTER → 2020-02-14 09:53 | Outpatient (BNVA) | payer MEDICAID, SELFPAY | PROVIDERS: Visit Provider Family Medicine Adult Medicine | DX: I10 Essential (primary) hypertension (principal); K51.211 Ulcerative (chronic) proctitis with rectal bleeding; K62.89 Other specified diseases of anus and rectum; Z00.00 Encounter for general adult medical examination without abnormal findings; R73.09 Other abnormal glucose; Z92.89 Personal history of other medical treatment | CPT/HCPCS: 80053; 83036; 84443; 85025; G0103 ==

== ENCOUNTER → 2020-03-27 14:30 | Outpatient (BNVA) | payer SELFPAY | PROVIDERS: Visit Provider Surgery | DX: K51.211 Ulcerative (chronic) proctitis with rectal bleeding (principal) | CPT/HCPCS: 87635 ==

== ENCOUNTER 2020-04-01 06:30 | Day surgery (SDC) | payer SELFPAY ==
[2020-03-30 12:23] VITALS: BMI 28.3
[2020-04-01 06:40] VITALS: BP 153/125; PULSE 101; RESP 18; TEMP 36.6; O2SAT 97
[2020-04-01] MEDS: sodium chloride 0.9% 1,000 ML 30 ML IV (06:50)
--- NOTE | 2020-04-01 06:52 | W.PM.OPSUD ---
Surgery/Procedure H&P Update DATE OF PROCEDURE: April 01, 2020 DATE H&P PERFORMED: 03/09/20 H&P UPDATE INFORMATION: I have reviewed H&P completed within last 30 days, I have examined patient prior to procedure and No changes to prior documentation PREOP DIAGNOSIS: Bleeding per rectum PRIMARY INDICATION FOR PROCEDURE: The same PLANNED PROCEDURE: Operation Date: 04/01/20 07:30 Proposed Procedures p Colonoscopy 67586 K51.211(Not Applicable) - Chino Sales MD
--- NOTE | 2020-04-01 07:31 | ANES.PREANE2 ---
Pre-Anesthetic Assessment Pre-Anesthetic Assessment: Height/Weight: Height 1.6 m Weight 72.575 kg Temp Pulse Resp BP Pulse Ox 97.9 F 101 H 18 153/125 97 04/01/20 06:40 04/01/20 06:40 04/01/20 06:40 04/01/20 06:40 04/01/20 06:40 Preop Diagnosis: Bleeding per rectum Proposed Procedure: Operation Date: 04/01/20 07:30 Proposed Procedures p Colonoscopy 24535 K51.211(Not Applicable) - Chino Sales MD Last intake: Intake Last Liquid Date 03/31/20 Last Solid Date 03/30/20 Social: Social History: Tobacco and No alcohol Exam: Pre-Anes Outpt Exam: alert, oriented x 3 and regular rate & rhythm Additional Exam Findings (including area of procedure): rhonchi Airway: Submandibular: WNL Cervical ROM: WNL MP: 2 Additional comments: Very poor dentition, missing several/cracked Pulmonary: Pulmonary: COPD CV/HEM: CV/HEM: HTN : : Chronic renal Insufficiency Metabolic: Metabolic: DM Anesthetic Plan: ASA status: 3 Anesthesia: MAC Risk of > 500 ml blood loss (7ml/kg in children): No Meds/Allergies Current Medications: Current Medications Generic Name Dose Route Start Last Admin Trade Name Freq PRN Reason Stop Dose Admin Sodium Chloride 1,000 mls @ 30 ml s/hr 04/01/20 06:45 04/01/20 07:00 Sodium Chloride 0.9% IV 04/02/20 06:44 30 mls/hr .Q24H CORNELIO Administration PFSH Anesthesia PFSH: Medical History Decreased glomerular filtration rate (GFR) Elevated glucose level Encounter for wellness examination 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
[2020-04-01 09:28] VITALS: BP 159/112; PULSE 78; RESP 20; TEMP 36.1
[2020-04-01 09:46] VITALS: BP 183/129; PULSE 74; RESP 18; O2SAT 99
--- NOTE | 2020-04-01 10:23 | ANE.PACU2 ---
Inpatient post-anesthesia follow up: Airway intact: Yes Vital signs: Temperature 97 F Pulse Rate 74 Respiratory Rate 18 Blood Pressure 183/129 Pulse Oximetry 99 Oxygen Delivery Me thod Room Air Oxygen Flow Rate 2 Fraction of Inspir ed Oxygen Hydration adequate: Yes Nausea and vomiting: No Pain level: 1 Mental status: Baseline
[2020-04-01 10:59] LABS: Carcinoembryonic Antigen 17.1 ng/mL (0.0-4.7)
== END 2020-04-01 10:16 | disposition home or self-care (01) ==
PROVIDERS: Visit Provider Surgery
PROC: 0DJD8ZZ Inspection of Lower Intestinal Tract, Via Natural or Artificial Opening Endoscopic (ICD-10-PCS; CPT 45378; principal; 2020-04-01 07:30)
DX: K51.211 Ulcerative (chronic) proctitis with rectal bleeding (principal); K57.30 Diverticulosis of large intestine without perforation or abscess without bleeding; J44.9 Chronic obstructive pulmonary disease, unspecified; I10 Essential (primary) hypertension; E11.9 Type 2 diabetes mellitus without complications; F17.210 Nicotine dependence, cigarettes, uncomplicated
CPT/HCPCS: 12345; 45380; 82378; 88305; J2704; J7030

== ENCOUNTER → 2020-04-09 11:35 | Outpatient (BNVA) | payer SELFPAY | PROVIDERS: Visit Provider Surgery | DX: K62.5 Hemorrhage of anus and rectum (principal); K62.89 Other specified diseases of anus and rectum | CPT/HCPCS: 87635 ==

== ENCOUNTER 2020-04-13 09:41 | Day surgery (SDC) | payer SELFPAY ==
[2020-04-13] VITALS (11 sets, daily range): BP systolic 136–171; BP diastolic 98–115; PULSE 62–98; RESP 14–20; TEMP 36.4–36.7; O2SAT 94–98; BMI 35.4
[2020-04-13] MEDS: sodium chloride 0.9% 1,000 ML 30 ML IV (10:29)
--- NOTE | 2020-04-13 11:35 | ANES.PREANE2 ---
Pre-Anesthetic Assessment Pre-Anesthetic Assessment: Height/Weight: Height 1.6 m Weight 90.718 kg Temp Pulse Resp BP Pulse Ox 98.1 F 93 16 136/114 98 04/13/20 10:03 04/13/20 10:03 04/13/20 10:03 04/13/20 10:03 04/13/20 10:03 Preop Diagnosis: Rectal mass Proposed Procedure: Operation Date: 04/13/20 11:10 Proposed Procedures p Flex Sigmoidoscopy 75317 [id number] K62.89(Not Applicable) - Chino Sales MD s Exam Under Anesthesia(Not Applicable) - Chino Sales MD Was Beta Tati taken within 24 hours: N/A Last intake: Intake Last Liquid Date 04/13/20 Last Liquid Time 09:00 Last Solid Date 04/12/20 Last Solid Time 20:00 Social: Social History: Tobacco and No alcohol Exam: Pre-Anes Outpt Exam: alert, oriented x 3 and regular rate & rhythm Airway: Submandibular: WNL Cervical ROM: WNL MP: 2 Additional comments: Very poor Pulmonary: Pulmonary: COPD CV/HEM: CV/HEM: HTN : : Chronic renal Insufficiency Metabolic: Metabolic: DM and Morbid obesity Anesthetic Plan: ASA status: 3 Anesthesia: MAC Risk of > 500 ml blood loss (7ml/kg in children): No Meds/Allergies Current Medications: Current Medications Generic Name Dose Route Start Last Admin Trade Name Freq PRN Reason Stop Dose Admin Sodium Chloride 1,000 mls @ 30 ml s/hr 04/13/20 10:00 04/13/20 10:29 Sodium Chloride 0.9% IV 04/14/20 09:59 30 mls/hr .Q24H CORNELIO Administration PFSH Anesthesia PFSH: Medical History Decreased glomerular filtration rate (GFR) Elevated glucose level Encounter for wellness examination 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
--- NOTE | 2020-04-13 12:56 | W.PM.OPSUD ---
Surgery/Procedure H&P Update DATE OF PROCEDURE: April 13, 2020 DATE H&P PERFORMED: 04/09/20 H&P UPDATE INFORMATION: I have reviewed H&P completed within last 30 days, I have examined patient prior to procedure and No changes to prior documentation PREOP DIAGNOSIS: Rectal mass PRIMARY INDICATION FOR PROCEDURE: The same PLANNED PROCEDURE: Operation Date: 04/13/20 11:10 Proposed Procedures p Flex Sigmoidoscopy 32859 [id number] K62.89(Not Applicable) - Chino Salse MD s Exam Under Anesthesia(Not Applicable) - Chino Sales MD
--- NOTE | 2020-04-13 15:34 | P.OP_ITS ---
Operative Report Date of procedure: April 13, 2020 Pre-op Diagnosis: Rectal mass Post-op diagnosis: same Post-op Findings: Mass located 4-1/2 cm from the anal verge semicircumferential occupying the anterior anorectal segment with limited mobility of the anterior structures, friable with easy bleeding on touch Procedure Done: Examination under anesthesia with multiple biopsies of the anal mass Specimens removed/disposition: Anal mass biopsies sent for permanent pathology Surgeon: Chino Sales Yard Coupler: Surgical techbonny Barakat Circulating nurse [place] Anesthesia: General (GETA gas stove servicer helper Libra) Estimated blood loss (mL): 15 Condition: stable Disposition: same day Brief History: This is a pleasant 54 years old gentleman presents with history of bleeding per rectum for more than 1 year and had undergone a colonoscopy by me about a week or so and was found to have a large anorectal mass and multiple biopsies were sent for permanent pathology and unfortunately the report didnt confirm but laureen the suspicious for cancer. A. Anus, anal mass , biopsy: ?Fragments of necrotic colonic mucosa with dysplastic colonic epithelium, suspicious for a neoplastic process. ?No squamous epithelium or anal mucosa identified. And thus I had to supervisor counseling and guidance the patient to take him back for exam under anesthesia with possible flexible endoscopy. Patient agreed to proceed accordingly Procedure: Patient was identified in the holding area, was taken to the OR placed first in supine position,IV antibiotics were given with induction time- out was done verifying the patient's name, date of , and procedure, all were in agreement. Endo Tracheal tube was placed by the anesthesia provider, patient was placed in lithotomy position and all pressure points were padded. Prep and drape of the perineum was done under the usual sterile technique Following that a digital rectal examination was done and mass was appreciated semicircumferential towards the anterior aspect of the anal canal about 4-1/2 cm from the anal verge with limited mobility, friable with easy bleeding on touch. A lubricated self-retaining Anoscope was inserted, and under direct visualization multiple biopsies were obtained and sent for permanent pathology.At this point I did not see the necessity to perform a flex sigmoidoscopy as I was able to obtain enough biopsies hemostasis was secured after irrigation using Bovie cauterization followed by packing with A piece of Surgicel /piece of Xeroform impregnated with Lubricant jelly was placed in the anal canal, attached to 2-0 silk suture, to help retrieving it by the patient later on. ABDs were applied followed by surgical pants Patient was repositioned to supine position, counts of instruments,needles and sponges were completed at the end of the procedure Patient was taken to the recovery area in stable condition I was present for the whole entire procedure
[2020-04-13] MEDS: fentaNYL 50 mcg/mL INJ 2mL IVP (15:56)
[2020-04-13] MEDS: HYDROmorphone 1 mg/mL INJ 1 mL 0.5 MG IVP (16:03)
--- NOTE | 2020-04-13 16:21 | ANE.PACU2 ---
Inpatient post-anesthesia follow up: Airway intact: Yes Vital signs: Temperature 97.6 F Pulse Rate 78 Respiratory Rate 19 Blood Pressure 137/108 Pulse Oximetry 94 Oxygen Delivery Me thod Room Air Oxygen Flow Rate Fraction of Inspir ed Oxygen Hydration adequate: Yes Nausea and vomiting: No Pain level: 1 Mental status: Baseline
[2020-04-13] MEDS: HYDROcodone-acetaminophen 5-325 mg Tablet 1 TAB PO (16:44)
== END 2020-04-13 17:02 | disposition home or self-care (01) ==
PROVIDERS: Visit Provider Surgery
PROC: 0DJD8ZZ Inspection of Lower Intestinal Tract, Via Natural or Artificial Opening Endoscopic (ICD-10-PCS; CPT 45330; principal; 2020-04-13 11:10)
PROC: (CPT 46606; 2020-04-13 11:10)
DX: C20 Malignant neoplasm of rectum (principal); J44.9 Chronic obstructive pulmonary disease, unspecified; I10 Essential (primary) hypertension; E11.9 Type 2 diabetes mellitus without complications; E66.01 Morbid (severe) obesity due to excess calories; Z68.35 Body mass index [BMI] 35.0-35.9, adult; F17.210 Nicotine dependence, cigarettes, uncomplicated
CPT/HCPCS: 46606; 12345; 88305; J0330; J1100; J1170; J2250; J2405; J2704; J2710; J3010; J3490; J7030

== ENCOUNTER 2020-05-07 12:06 | Outpatient (CLI) | payer SELFPAY ==
--- NOTE | 2020-05-08 12:06 | ONC CON_ITS ---
Dr. Storey New Patient Note Patient: Amadou Pan Unit #: [id number]: 1965 Dicatated By: Nikia Storey M.D.Date of Visit: May 07, 2020 Onc MED New Patient/Consult Referring Physician: Dr. CARON SALES M.D. History of Present Illness: Mr. Amadou Pan, is a 54-year-old gentleman with over a year long history of bleeding per rectum and now stool incontinence for the last 6 to 8 months was referred to Dr. Sales underwent colonoscopy on April 01, 2020 which shows presence of annular masslike lesion 1 cm from anal verge and extends about 9 cm proximally with partial obstruction, and biopsy was done which showed fragments of necrotic colonic mucosa with a dysplastic colonic epithelium suspicious for neoplastic process thus on April 13, 2020, low rectal/anal mass biopsy was repeated final pathology report came back moderately differentiated invasive adenocarcinoma, CEA checked on April 01, 2020 was 17.1, prior to that CT scan of abdomen pelvis was done in October 2019 which showed bowel wall thickening in the rectum with inflammation and shotty reactive adenopathy Liver no mass seen Past medical history significant for mild renal insufficiency, hyperglycemia, proctitis, stool incontinence, hypertension, Patient smoke a pack a day and take alcohol occasionally. Patient denies any history of jaundice weight loss due to poor appetite, no fever chills, no nausea or vomiting, no hemoptysis or hematemesis, no dysuria, no new bony pains Past Medical History: Mr. Pan's medical history consists of hypertension and proctitis. Past Surgical History: Mr. Pan's surgical/procedural history consists of colonoscopy. Medications: Catapres (0.1 mg) Tablet Oral b.i.d. Allergies: No Known Allergies. Social History: Mr. Pan is . He is a daily smoker who smokes 1.0 pack/day. He has no history of drinking. He has indicated exposure to the following products: cigarettes. Mr. Pan reports the following support systems: lives with spouse, significant other, family, or friends. Family History: There is no documented family history. Review Of Symptoms: Review of Systems is not available for this patient. Vital Signs: Performed on May 07, 2020 12:53: 5, 0, 0.00, 0.00 sq.m, 97 %, 99 /min, 18 /min, 160/90 mm(hg) (HIGH), 98.9 F (HIGH), and 183.4 lbs (HIGH). Performance Status: 0 - Fully active, able to carry on all predisease activities without restrictions. (ECOG) Physical Examination: ENMT - No mouth sores, no thrush, no jaundice, Respiratory - Lungs are clear to auscultation, Cardiovascular - Regular rate and rhythm of heart, Abdomen - Soft, bowel sounds present, Extremities - No visible edema. Lab/Imaging: Most recent lab results are not available for this patient. 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 With chronic off and on rectal bleeding and stool incontinence of 1 year duration CEA checked on April 01, 2020 was 17.1 Hypertension Uncontrolled glucose level Mild renal insufficiency Chronic smoking Plan: Discussed with patient regarding his disease status and treatment options, standard of care would be neoadjuvant combined chemoradiation followed by systemic chemotherapy with FOLFOX or surgical resection followed by adjuvant FOLFOX but concern is stool incontinence which is causing embarrassment to patient and inconvenience to due to foul odor. His CT scan done in October 2019 showed low rectum bowel thickening and shotty lymph nodes and his CEA checked and March 2020 was elevated so we will CT PET scan to assess disease status in the last refer him to radiation oncology for evaluation and will discuss with Dr. Sales regarding diversion colostomy or upfront surgery if possible Patient return to clinic after CT PET scan for further discussion Signed By: Nikia Storey M.D. <<Signature on File>>
== END 2020-05-07 12:07 | disposition home or self-care (01) ==
LOC: ONCMED 12:13
PROVIDERS: Visit Provider Internal Medicine Hematology & Oncology
DX: C20 Malignant neoplasm of rectum (principal); R97.0 Elevated carcinoembryonic antigen [CEA]; R15.9 Full incontinence of feces; I10 Essential (primary) hypertension; N28.9 Disorder of kidney and ureter, unspecified; F17.210 Nicotine dependence, cigarettes, uncomplicated
CPT/HCPCS: 99205

== ENCOUNTER 2020-07-06 08:56 | Outpatient (CLI) | payer MEDICAID, SELFPAY ==
[2020-07-06 09:28] LABS: Basophils # 0.1 10^3/uL (0.0-0.1); Basophils % 0.8 %; Eosinophils # 0.4 10^3/uL (0.0-0.8); Eosinophils % 4.3 %; Hematocrit 43.8 % (42.0-52.0); Hemoglobin 14.1 g/dL (11.7-16.6); Lymphocytes # 2.2 10^3/uL (0.8-4.8); Lymphocytes % 25.6 %; Mean Corpuscular HGB Conc 32.2 g/dL (30.0-36.0); Mean Corpuscular Hemoglobin 27.2 pg (28.0-34.0); Mean Corpuscular Volume 84.6 fL (80-94); Mean Platelet Volume 9.6 fL (7.4-10.4); Monocytes # 0.8 10^3/uL (0.2-0.9); Monocytes % 9.6 %; Neutrophils # 5.09 10^3/uL (1.8-7.7); Neutrophils % 59.5 %; Nucleated Red Blood Cells % 0 %; Platelet Count 326 10^3/cmm (130-400); Red Blood Count 5.18 10^6/uL (4.1-5.3); Red Cell Distribution Width 13.9 % (12.1-15.1); White Blood Count 8.6 10^3/uL (4.0-10.0)
[2020-07-06 09:51] LABS: Alanine Aminotransferase 9 U/L (0-41); Albumin Level 3.9 g/dL (3.5-5.2); Alkaline Phosphatase 74 IU/L (40-130); Anion Gap 16.4 (5-19); Aspartate Amino Transferase 12 U/L (0-40); Blood Urea Nitrogen 8 mg/dL (6-20); Calcium 8.6 mg/dL (8.5-10.5); Carbon Dioxide 24 mmol/L (22-29); Chloride 103 mmol/L (98-107); Globulin 2.6 g/dL (1.3-4.6); Glomerular Filtration Rate 77.3 mL/min (90-130); Glucose 215 mg/dL (65-115); Osmolality Calculated 295 mOsm/kg (285-295); Potassium 3.4 mmol/L (3.5-5.1); Sodium 140 mmol/L (136-145); Total Bilirubin 0.3 mg/dL (0.15-1.2); Total Protein 6.5 g/dL (6.6-8.7)
--- NOTE | 2020-07-06 11:42 | ONC FU_ITS ---
Dr. Storey follow up note Patient: Amadou Pan < Unit #: [id number]: 1965 Dicatated By: Nikia Storey M.D.Date of Visit:July 06, 2020 Onc Med Follow-up/Prog Note History of Present Illness: Mr. Amadou Pan, is a 55-year-old gentleman with over a year long history of bleeding per rectum and now stool incontinence for the last 6 to 8 months was referred to Dr. Sales underwent colonoscopy on April 01, 2020 which shows presence of annular masslike lesion 1 cm from anal verge and extends about 9 cm proximally with partial obstruction, and biopsy was done which showed fragments of necrotic colonic mucosa with a dysplastic colonic epithelium suspicious for neoplastic process thus on April 13, 2020, low rectal/anal mass biopsy was repeated final pathology report came back moderately differentiated invasive adenocarcinoma, CEA checked on April 01, 2020 was 17.1, prior to that CT scan of abdomen pelvis was done in October 2019 which showed bowel wall thickening in the rectum with inflammation and shotty reactive adenopathy Liver no mass seen Past medical history significant for mild renal insufficiency, hyperglycemia, proctitis, stool incontinence, hypertension, Patient smoke a pack a day and take alcohol occasionally. Patient denies any history of jaundice weight loss due to poor appetite, no fever chills, no nausea or vomiting, no hemoptysis or hematemesis, no dysuria, no new bony pains Came for follow-up, still complaining of stool incontinence and now complaining of pain in the rectum at times very severe. But no nausea or vomiting, no fever chills, During his Last visit Patient was referred to radiation oncology as well as CT PET scan was ordered but due to no insurance, could not get CT PET scan in the meantime patient was referred to Dr. Gipson, colorectal surgeon in [place] and patient is scheduled to see him on July 08, 2020 Medications: Catapres (0.1 mg) Tablet Oral b.i.d. Allergies: No Known Allergies. Review of Systems: Review of Systems is not available for this patient. Vital Signs: Performed on July 06, 2020 10:49 Weight - 180.2 lbs (LOW) BSA - 0.00 sq.m BMI - 0.00 Temperature - 98.3 F (LOW) Pulse - 100 /min Respiration - 20 /min BP - 157/110 mm(hg) (HIGH) O2 Sat - 98 % Pain - 7 Fatigue - 4 Performance Status: 0 - Fully active, able to carry on all predisease activities without restrictions. (ECOG) Physical Examination: ENMT - No mouth sores, no thrush, no jaundice, Respiratory - Lungs are clear to auscultation, Cardiovascular - Regular rate and rhythm of heart, Abdomen - Soft, bowel sounds present, Extremities - No visible edema. Lab/Imaging: Most recent lab results are not available for this patient. 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 With chronic off and on rectal bleeding and stool incontinence of 1 year duration CEA checked on April 01, 2020 was 17.1 Hypertension Uncontrolled glucose level Mild renal insufficiency Chronic smoking Plan: Discussed with patient regarding his labs white blood count 8.6 hemoglobin 14.1 hematocrit 43.8 platelets 326,000 CMP within normal limit except glucose 259 potassium 3.4 Clinically, patient is in mild to moderate distress due to off-and-on rectal pain and social embarrassment due to stool incontinence. Patient is scheduled to see Dr. Gipson, in [place] on July 08, 2020, That case, we will see him back after surgical evaluation with Dr. Gipson, if upfront surgery is considered Patient return to clinic 2 weeks after surgery for evaluation for adjuvant treatment if needed on the other hand if neoadjuvant chemotherapy/radiation therapy is suggested by surgery, then will see him next week In the meantime, for off-and-on rectal pain, in the absence of fever it could be due to rectal tumor, patient was advised in case there is a fever or sudden worsening of pain, he need to call us or go to [facility] for evaluation to rule out infection/sepsis, for symptom control, will give him prescription for Percocet 5/325 1 to 2 tablet every 6-8 hour as needed Signed By: Nikia Storey M.D. <<Signature on File>>
== END 2020-07-06 08:57 | disposition home or self-care (01) ==
LOC: ONCMED 08:58
PROVIDERS: Visit Provider Internal Medicine Hematology & Oncology
DX: C20 Malignant neoplasm of rectum (principal); D50.9 Iron deficiency anemia, unspecified; I10 Essential (primary) hypertension; R73.03 Prediabetes; N17.9 Acute kidney failure, unspecified; F17.210 Nicotine dependence, cigarettes, uncomplicated; Z79.899 Other long term (current) drug therapy
CPT/HCPCS: 36415; 80053; 85025; 99214

== ENCOUNTER 2020-08-11 12:15 | Outpatient (CLI) | payer MEDICAID, SELFPAY ==
[2020-08-11 13:15] LABS: Basophils # 0.1 10^3/uL (0.0-0.1); Basophils % 0.5 %; Eosinophils # 0.5 10^3/uL (0.0-0.8); Eosinophils % 5.3 %; Hematocrit 41.6 % (42.0-52.0); Hemoglobin 13.7 g/dL (11.7-16.6); Lymphocytes # 2.8 10^3/uL (0.8-4.8); Lymphocytes % 29.3 %; Mean Corpuscular HGB Conc 32.9 g/dL (30.0-36.0); Mean Corpuscular Hemoglobin 26.9 pg (28.0-34.0); Mean Corpuscular Volume 81.7 fL (80-94); Mean Platelet Volume 9.5 fL (7.4-10.4); Monocytes # 0.9 10^3/uL (0.2-0.9); Monocytes % 9.9 %; Neutrophils # 5.18 10^3/uL (1.8-7.7); Neutrophils % 54.7 %; Nucleated Red Blood Cells % 0 %; Platelet Count 318 10^3/cmm (130-400); Red Blood Count 5.09 10^6/uL (4.1-5.3); Red Cell Distribution Width 15.3 % (12.1-15.1); White Blood Count 9.5 10^3/uL (4.0-10.0)
[2020-08-11 13:45] LABS: Alanine Aminotransferase 10 U/L (0-41); Alkaline Phosphatase 88 IU/L (40-130); Anion Gap 19.5 (5-19); Aspartate Amino Transferase 18 U/L (0-40); Blood Urea Nitrogen 9 mg/dL (6-20); Calcium 8.1 mg/dL (8.5-10.5); Carbon Dioxide 21 mmol/L (22-29); Chloride 104 mmol/L (98-107); Globulin 2.4 g/dL (1.3-4.6); Glomerular Filtration Rate 139.4 mL/min (90-130); Glucose 84 mg/dL (65-115); Osmolality Calculated 290 mOsm/kg (285-295); Potassium 3.5 mmol/L (3.5-5.1); Sodium 141 mmol/L (136-145); Total Bilirubin 0.2 mg/dL (0.15-1.2); Total Protein 6.4 g/dL (6.6-8.7)
--- NOTE | 2020-08-11 16:37 | ONC FU_ITS ---
Dr. Storey follow up note Patient: Amadou Pan Unit #: [id number]: 1965 Dicatated By: Nikia Storey M.D.Date of Visit:Aug 11, 2020 Onc Med Follow-up/Prog Note History of Present Illness: Mr. Amadou Pan, is a 55-year-old gentleman with over a year long history of bleeding per rectum and now stool incontinence for the last 6 to 8 months was referred to Dr. Sales underwent colonoscopy on April 01, 2020 which shows presence of annular masslike lesion 1 cm from anal verge and extends about 9 cm proximally with partial obstruction, and biopsy was done which showed fragments of necrotic colonic mucosa with a dysplastic colonic epithelium suspicious for neoplastic process thus on April 13, 2020, low rectal/anal mass biopsy was repeated final pathology report came back moderately differentiated invasive adenocarcinoma, CEA checked on April 01, 2020 was 17.1, prior to that CT scan of abdomen pelvis was done in October 2019 which showed bowel wall thickening in the rectum with inflammation and shotty reactive adenopathy Liver no mass seen Past medical history significant for mild renal insufficiency, hyperglycemia, proctitis, stool incontinence, hypertension, Patient smoke a pack a day and take alcohol occasionally. Patient denies any history of jaundice weight loss due to poor appetite, no fever chills, no nausea or vomiting, no hemoptysis or hematemesis, no dysuria, no new bony pains Came for follow-up, complaining of pain in the rectal area but under control with current pain medication, patient said he has seen Dr. Gipson recently and he was advised to complete his chemotherapy and radiation therapy prior to surgical evaluation. Otherwise patient denies any fever chills denies nausea vomiting but still having persistent leakage and using a pad or diaper and feels quite embarrass. Otherwise no nausea or vomiting no diarrhea constipation, no jaundice, no back pain, no fever or chills Medications: Catapres (0.1 mg) Tablet Oral b.i.d. Allergies: No Known Allergies. Review of Systems: Review of Systems is not available for this patient. Vital Signs: Performed on Aug 11, 2020 14:18 Height - 66 in Weight - 179.2 lbs (LOW) BSA - 1.91 sq.m BMI - 28.92 Temperature - 98.0 F (LOW) Pulse - 110 /min (HIGH) Respiration - 18 /min BP - 145/88 mm(hg) (HIGH) O2 Sat - 96 % Pain - 8 Performance Status: 0 - Fully active, able to carry on all predisease activities without restrictions. (ECOG) Physical Examination: ENMT - No mouth sores, no thrush, no jaundice, Respiratory - Lungs are clear to auscultation, Cardiovascular - Regular rate and rhythm of heart, Abdomen - Soft, bowel sounds present, Extremities - No visible edema or rash. Lab/Imaging: Most recent lab results are not available for this patient. 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 With chronic off and on rectal bleeding and stool incontinence of 1 year duration CEA checked on April 01, 2020 was 17.1 Hypertension Uncontrolled glucose level Mild renal insufficiency Chronic smoking Plan: Discussed with patient regarding his labs white blood count 9.5 hemoglobin 13.7 mercury 41.6 platelets 318,000 CMP within normal limits except creatinine is pending and clinically, patient is doing reasonably well but with persistent discomfort in her rectal area and leakage causing social embarrassment and smell. Patient was referred to Dr. Giposn for diversion colostomy while being treated for rectal cancer, patient was also supposed to get Port-A-Cath placement but somehow it was not done, we will discuss with Dr. Gipson, regarding these procedures, which may improve quality of life as well as Port-A-Cath for chemo infusion. If in case patient could not go there and if is okay with Dr. Gipson, will request Dr. Sales to do the Port-A-Cath as well as temporary ileostomy. Patient will return to clinic after Port-A-Cath placement with CBC CMP and CEA and planning to consider FOLFOX 6-8 cycle followed by combined chemoradiation with oral Xeloda, followed by surgical evaluation All the side effect possible benefits associated with systemic chemotherapy including but not limited to mouth sores, nausea vomiting, diarrhea, hepatotoxicity, peripheral neuropathy especially with oxaliplatin, bone marrow suppression, hair loss, skin rash, hand-foot syndrome especially will hold Xeloda were mentioned, patient expressed full understanding, further teaching will be done by chemotherapy nurse. Signed By: Nikia Storey M.D. <<Signature on File>>
== END 2020-08-11 12:16 | disposition home or self-care (01) ==
LOC: ONCMED 12:16
PROVIDERS: Visit Provider Internal Medicine Hematology & Oncology
DX: C20 Malignant neoplasm of rectum (principal); I10 Essential (primary) hypertension; R73.09 Other abnormal glucose; F17.210 Nicotine dependence, cigarettes, uncomplicated; N28.9 Disorder of kidney and ureter, unspecified; Z79.899 Other long term (current) drug therapy
CPT/HCPCS: 36415; 80053; 85025; 99214

== ENCOUNTER → 2020-08-24 14:48 | Outpatient (BNVA) | payer MEDICAID, SELFPAY | PROVIDERS: Visit Provider Surgery | DX: C20 Malignant neoplasm of rectum (principal); Z20.822 Contact with and (suspected) exposure to COVID-19 | CPT/HCPCS: 87635 ==

== ENCOUNTER 2020-08-28 10:10 | Day surgery (SDC) | payer MEDICAID, SELFPAY ==
[2020-08-27 13:43] VITALS: BMI 31.1
[2020-08-28] VITALS (13 sets, daily range): BP systolic 139–179; BP diastolic 90–128; PULSE 74–102; RESP 12–20; TEMP 36.2–36.5; O2SAT 92–100
--- NOTE | 2020-08-28 | SCC_ITS ---
Procedure Done: 1. Placement of PowerPort via right subclavian vein 2. Fluoroscopic guidance and interpretation for placement of catheter 6.7 seconds of fluoroscopic guidance, for a cumulative dose of 0.72 mGy, was provided to Dr. Saels by the radiology department. C-arm images of the chest were saved for the patient's permanent record. [facility]
--- NOTE | 2020-08-28 10:18 | SC_ITS ---
WS: [id number] C-arm fluoroscopy for port insertion, 08/28/2020 Clinical Data: Powerport Placement Comparison: Portable chest, 07/01/2019. Findings: A right port was inserted via the subclavian vein ending in the superior vena cava. SC/C-arm FL for CVA [id number] Impression: Insertion of right infusion port.
[2020-08-28] MEDS: sodium chloride 0.9% 1,000 ML 30 ML IV (10:55)
--- NOTE | 2020-08-28 11:10 | ANES.PREANE2 ---
Pre-Anesthetic Assessment Pre-Anesthetic Assessment: Height/Weight: Height 1.6 m Weight 79.832 kg Temp Pulse Resp BP Pulse Ox 97.5 F L 102 H 19 H 161/119 96 08/28/20 10:25 08/28/20 10:25 08/28/20 10:25 08/28/20 10:25 08/28/20 10:25 Preop Diagnosis: Rectal cancer Proposed Procedure: Operation Date: 08/28/20 12:00 Proposed Procedures p Portacath Placement 87713 C20.(Not Applicable) - Chino Sales MD Familial anesthetic complications: None Was Beta Tati taken within 24 hours: N/A Was Clonidine taken within 24 hours: N/A Last intake: Intake Last Liquid Date 08/27/20 Last Liquid Time 23:00 Last Solid Date 08/27/20 Last Solid Time 23:00 Social: Social History: No alcohol and No tobacco Exam: Pre-Anes Outpt Exam: alert, oriented x 3, clear to auscultation bilaterally and regular rate & rhythm Airway: Cervical ROM: WNL MP: 3 Dentition: Other (Poor dentition) Pulmonary: Pulmonary: COPD CV/HEM: CV/HEM: HTN : : Chronic renal Insufficiency Metabolic: Metabolic: DM Anesthetic Plan: ASA status: 4 Anesthesia: MAC Risk of > 500 ml blood loss (7ml/kg in children): No PFSH Anesthesia PFSH: Medical History Decreased glomerular filtration rate (GFR) Elevated glucose level Encounter for wellness examination 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
--- NOTE | 2020-08-28 11:21 | W.PM.OPSUD ---
Surgery/Procedure H&P Update DATE OF PROCEDURE: August 28, 2020 DATE H&P PERFORMED: 08/24/20 H&P UPDATE INFORMATION: I have reviewed H&P completed within last 30 days, I have examined patient prior to procedure and No changes to prior documentation PREOP DIAGNOSIS: Rectal cancer PRIMARY INDICATION FOR PROCEDURE: The same PLANNED PROCEDURE: Operation Date: 08/28/20 12:00 Proposed Procedures p Portacath Placement 54395 C20.(Not Applicable) - Chino Sales MD
[2020-08-28] MEDS: heparin, porcine 1,000 unit/mL INJ 10 mL 9000 UNIT INJECTION (12:32)
[2020-08-28] MEDS: lidocaine 2% INJ 20 mL INJECTION (12:34)
--- NOTE | 2020-08-28 12:52 | P.OP_ITS ---
Operative Report Date of procedure: August 28, 2020 Pre-op Diagnosis: Rectal cancer Post-op diagnosis: same Post-op Findings: The same Procedure Done: 1. Placement of PowerPort via right subclavian vein 2. Fluoroscopic guidance and interpretation for placement of catheter Implants: Right subclavian vein PowerPort Specimens removed/disposition: None Surgeon: Chino Sales Private [employer] Exchange Service Adviser: field map technician Sue Circulating nurse Donna Rivas Anesthesia: General (LMA ) Estimated blood loss (mL): 10 Complications: No immediate complications Condition: stable Disposition: same day Brief History: Rectal cancer. Full H&P informed consent per chart Procedure: Patient was identified in the holding area and taken to the operative room and placed in supine position IV propofol was given by the anesthesia provider ,both arms were tucked,Time-out was done verifying the patient's name/date of /planned procedure and destination after the procedure, all were in agreement. SCDs confirmed to be functioning, preoperative antibiotics administered per protocol, and beta ariel protocol was confirmed, appropriate positioning of the patient was done by me. Medications were reviewed to assess for anticoagulant usage. Risks and benefits and prevention of central line associated blood stream infection (CLABSI) were discussed with the patient/CPOA, and a consent was obtained. Monitors were in place and monitored throughout the procedure. All necessary supplies were available prior to start. Hand hygiene was completed prior to starting. Maximum barrier technique was utilized including a sterile gown, sterile gloves with a hat and mask. Site was was prepped with [chlorhexidine] and a full body drape was placed. 5 mL of 2% lidocaine was injected into the skin with a 25 gauge needle. Prep& drape was done under the usual sterile technique, lidocaine 2% was injected at the site of the stick, started by right subclavian stick that retrieved venous blood was obtained from the first stick, a guidewire was then threaded and under the guidance of fluoroscopy position was confirmed to be in the IVC and my interpretation, there was some PVC changes, The wire was then adjusted and PVCs were gone, at that point the guidewire was secured to the drapes with a hemostat and the needle was taken out, attention was then deviated towards creation of a pocket for the port were lidocaine 2% was injected using an 15 blade knife skin incision was created dissection using the Bovie to create a pocket for the Port-A-Cath to be accommodated, hemostasis was secured, after the port being appropriately flushed it was inserted into the pocket and a tunneler was used to accommodate the catheter of the port cath to be delivered through the incision first created at the site of the stick, at that point under fluoroscopy an estimated length was measured for the catheter and was cut at the designed level, followed by that a dilator with the sheath introduced onto the guidewire the dilator and the wire were retrieved and the catheter of the port was introduced via the sheath where it was peeled off and the catheter maintained to be in the SVC that was confirmed with fluoroscopy, and the fluoroscopy interpretation was done by me throughout the entire procedure. The port was kept in its pocket, 3-0 Vicryl deep subdermal interrupted sutures, skin was then closed by 4-0 Monocryl as subcuticular closure. The stick site was closed by 4-0 Monocryl and Surgical glue was used followed by dressing. Patient tolerated the procedure well was taken to the recovery area Count was correct at the end of the procedure I was present for the whole entire procedure Position of the catheter was checked with a postoperative chest x-ray and it was in good position without evidence of pneumothorax
--- NOTE | 2020-08-28 13:03 | XR_ITS ---
WS: [id number] Portable AP upright chest, 08/28/2020 Clinical Data: Status post right subclavian PowerPort placement Comparison: Portable chest, 07/01/2019. Findings: No nodules, masses or effusions are seen. The heart is normal. The pulmonary vascularity is not increased. No pneumonia or pneumothorax is seen. The right port enters the subclavian vein and e nds in the superior vena cava. Monitor leads on the chest wall. XR/XR chest 1V portable [id number] Impression: Satisfactory insertion of right infusion port.
[2020-08-28] MEDS: labetalol 5 mg/mL SDV 20mL IVP (13:05)
[2020-08-28] MEDS: diphenhydrAMINE 50 mg/mL SDV 1mL 12.5 MG IVP (13:30)
--- NOTE | 2020-08-28 13:51 | SUR.PHASEI ---
Patient states he has not taken BP meds due to no money to buy. Case management was called, voicemail left, PCP was called, voicemail left. [facility] was notified of port placement
--- NOTE | 2020-08-28 14:08 | SUR.PHASEI ---
1259 PT TO PACU RESTLESS WHEN AWAKENED, PT SHIVERING BP ELEVATED WARM BLANKETS TO PT RT CHEST DRESSING D/I WITH SPOT OF RED TO SITE SCDS ON 1305 PT RESTLESS TOSSING IN BED C./O OF ITCHING, RUBBING FACE AND C/O OF COLD PT ASSISTED TO NOT RUB FACE WARM BLANKETS X 4 TO PT, SEE LABETOLOL GIVEN FOR ELEVATED BP, PT HAS NOT BEEN TAKING HOME BP MEDS FOR AN UNKNOWN TIME.L PT SCRATCHING AT ARMS AND CHEST, NO REDNESS OR WHELPS NOTED PT HAS MULOTIPLE BITES LIKE SITES PT STATES ( I HAVE BEEN GETTING BUG BITES AT HOME, IWAS ITCHING WHEN I CAME IN THIS MORNING) 1330 SEE BENEDRYL GIVEN FOR ITCHING AND PT ATTEMPTS TO USE URINAL AGAIN. 1347 EARLIER BP BETTER, BUT UNABLE TO GET AN ACCURATE BP PT IS RESTLESS ,SCRATCHING AT HIS WHOLE BODY, WANTS TO USE URINAL BUT UNABLE TIMES MULTIPLE ATTEMPTS PT REPOSITIONED UP IN BED X R PT TO OPS AND ASSISTED TO STAND AT BEDSIDE TO VOID, HANDOFF AT BEDSIDE, DR CRAWFORD AWARE WILL MONITOR BP IN OPS.
--- NOTE | 2020-08-28 15:16 | PC.NURSE ---
STATIS ON CLONIDINE RX FROM HIS PRIMARY- I SPOKE TO [facility] [place] REGARDING HIS RX. I LEARNED AND INFORMED PT THAT HIS CLONIDINE RX HAS . I LEFT A MESSAGE AT DR CALZADA'S OFFICE STATING THIS AND PTS BP STATIS TODAY. ALSO TOLD PT THAT THE PHARMACY VERIFIED THAT MEDICAID IS STILL WAVING COPAY SO HIS CLONIDINE AND HYDROCODONE WOULD NOT HAVE A CHARGE. PT'S STEP-SON SAID HE WOULD TAKE PT TO PHARMACY TO GET HIS MEDICATIONS.
--- NOTE | 2020-08-28 16:25 | ANE.PACU2 ---
Inpatient post-anesthesia follow up: Airway intact: Yes Vital signs: Temperature 97.7 F Pulse Rate 86 Respiratory Rate 18 Blood Pressure 160/92 Pulse Oximetry 97 Oxygen Delivery Me thod Room Air Oxygen Flow Rate 8 Fraction of Inspir ed Oxygen Hydration adequate: Yes Nausea and vomiting: No Pain level: 1 Mental status: Baseline
== END 2020-08-28 14:50 | disposition home or self-care (01) ==
PROVIDERS: Visit Provider Surgery
PROC: (CPT 36561; principal; 2020-08-28 12:00)
DX: C20 Malignant neoplasm of rectum (principal); J44.9 Chronic obstructive pulmonary disease, unspecified; I10 Essential (primary) hypertension; E11.9 Type 2 diabetes mellitus without complications; F17.210 Nicotine dependence, cigarettes, uncomplicated
CPT/HCPCS: 36561; 71045; 76000; 77001; 96365; C1788; J0690; J1200; J1644; J2250; J2704; J3010; J3490; J7030

== ENCOUNTER 2020-09-09 06:06 | Outpatient (RCR) | payer MEDICAID, SELFPAY ==
[2020-09-09 08:47] LABS: Basophils # 0.1 10^3/uL (0.0-0.1); Basophils % 0.6 %; Eosinophils # 0.7 10^3/uL (0.0-0.8); Hematocrit 41.9 % (42.0-52.0); Hemoglobin 13.1 g/dL (11.7-16.6); Lymphocytes # 2.4 10^3/uL (0.8-4.8); Lymphocytes % 21.1 %; Mean Corpuscular HGB Conc 31.3 g/dL (30.0-36.0); Mean Corpuscular Volume 83.1 fL (80-94); Mean Platelet Volume 9.5 fL (7.4-10.4); Neutrophils # 7.25 10^3/uL (1.8-7.7); Neutrophils % 62.9 %; Nucleated Red Blood Cells % 0 %; Platelet Count 344 10^3/cmm (130-400); Red Blood Count 5.04 10^6/uL (4.1-5.3); Red Cell Distribution Width 15.1 % (12.1-15.1); White Blood Count 11.5 10^3/uL (4.0-10.0)
[2020-09-09 09:32] LABS: Alanine Aminotransferase < 5 U/L (0-41); Albumin Level 3.6 g/dL (3.5-5.2); Alkaline Phosphatase 85 IU/L (40-130); Aspartate Amino Transferase 10 U/L (0-40); Blood Urea Nitrogen 11 mg/dL (6-20); Calcium 8.8 mg/dL (8.5-10.5); Carbon Dioxide 22 mmol/L (22-29); Chloride 105 mmol/L (98-107); Globulin 2.8 g/dL (1.3-4.6); Glucose 110 mg/dL (65-115); Osmolality Calculated 290 mOsm/kg (285-295); Sodium 140 mmol/L (136-145); Total Bilirubin 0.2 mg/dL (0.15-1.2); Total Protein 6.4 g/dL (6.6-8.7)
[2020-09-09] MEDS: dextrose 5% 250 ML 75 ML IV (10:50)
[2020-09-09] MEDS: palonosetron 0.25 mg/5 mL SDV IVP (10:50)
--- NOTE | 2020-09-09 17:12 | ONC FU_ITS ---
Dr. Storey follow up note Patient: Amadou Pan Unit #: [id number]: [id number] Dicatated By: Nikia Storey M.D.Date of Visit:Sep 09, 2020 Onc Med Follow-up/Prog Note History of Present Illness: Mr. Amadou Pan, is a 55-year-old gentleman with over a year long history of bleeding per rectum and now stool incontinence for the last 6 to 8 months was referred to Dr. Sales underwent colonoscopy on April 01, 2020 which shows presence of annular masslike lesion 1 cm from anal verge and extends about 9 cm proximally with partial obstruction, and biopsy was done which showed fragments of necrotic colonic mucosa with a dysplastic colonic epithelium suspicious for neoplastic process thus on April 13, 2020, low rectal/anal mass biopsy was repeated final pathology report came back moderately differentiated invasive adenocarcinoma, CEA checked on April 01, 2020 was 17.1, prior to that CT scan of abdomen pelvis was done in October 2019 which showed bowel wall thickening in the rectum with inflammation and shotty reactive adenopathy Liver no mass seen Past medical history significant for mild renal insufficiency, hyperglycemia, proctitis, stool incontinence, hypertension, Patient smoke a pack a day and take alcohol occasionally. Patient denies any history of jaundice weight loss due to poor appetite, no fever chills, no nausea or vomiting, no hemoptysis or hematemesis, no dysuria, no new bony pains Came for follow-up, denies any specific complaint except persistent pelvic pain but no nausea or vomiting no diarrhea or constipation, no melena or hematochezia, no hematuria. Patient is about to start his first cycle of chemotherapy with FOLFOX as a part of total neoadjuvant therapy Medications: Catapres (0.1 mg) Tablet Oral b.i.d. Allergies: No Known Allergies. Review of Systems: Review of Systems is not available for this patient. Vital Signs: Performed on Sep 09, 2020 09:44 Height - 66.00 in Weight - 176 lbs (LOW) BSA - 1.89 sq.m BMI - 28.41 Temperature - 98.9 F (HIGH) Pulse - 120 /min (HIGH) Respiration - 18 /min BP - 159/106 mm(hg) (HIGH) O2 Sat - 98 % Pain - 7 Fatigue - 6 Performance Status: 0 - Fully active, able to carry on all predisease activities without restrictions. (ECOG) Physical Examination: ENMT - No mouth sores, no thrush, no jaundice, Respiratory - Lungs are clear to auscultation, Cardiovascular - Regular rate and rhythm of heart, Abdomen - Soft, bowel sounds present, Extremities - No visible edema or rash. Lab/Imaging: Most recent lab results are not available for this patient. 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 With chronic off and on rectal bleeding and stool incontinence of 1 year duration CEA checked on April 01, 2020 was 17.1 Hypertension Uncontrolled glucose level Mild renal insufficiency Chronic smoking Plan: Discussed with patient regarding his labs white blood count 10.5 hemoglobin 13.1 hematocrit 41.9 platelets 344,000 CMP within normal limits Clinically, patient doing reasonably well, now being started on neoadjuvant systemic therapy with FOLFOX plan to give him 6-8 cycles biweekly followed by combined chemoradiation with oral Xeloda followed by surgical evaluation All the side effect possible benefits associated with FOLFOX were discussed again, patient was advised to be careful with icy cold beverages during and after oxaliplatin infusion. Chemotherapy teaching was done by nursing earlier, patient has no questions but requesting pain medication, given prescription and he will proceed with first cycle of chemotherapy with FOLFOX today and then return to clinic in 2 weeks with CBC CMP Signed By: Nikia Storey M.D. <<Signature on File>>
== END 2020-09-10 20:00 | disposition home or self-care (01) ==
LOC: ONCMED 06:06
PROVIDERS: PCP Family Medicine Adult Medicine; Visit Provider Internal Medicine Hematology & Oncology
DX: Z51.11 Encounter for antineoplastic chemotherapy (principal); C20 Malignant neoplasm of rectum; R59.0 Localized enlarged lymph nodes; K62.5 Hemorrhage of anus and rectum; I10 Essential (primary) hypertension; N17.9 Acute kidney failure, unspecified; F17.210 Nicotine dependence, cigarettes, uncomplicated; R73.09 Other abnormal glucose; Z79.899 Other long term (current) drug therapy
CPT/HCPCS: 36415; 80053; 85025; 96367; 96368; 96411; 96413; 96415; 96416; 99215; J0640; J1100; J2469; J9190; J9263

== ENCOUNTER 2020-09-10 20:19 | Emergency (ER) | payer MEDICAID, SELFPAY ==
[2020-09-10 20:40] VITALS: BP 168/124; PULSE 96; RESP 18; TEMP 36.8; O2SAT 96; BMI 29.2
--- NOTE | 2020-09-10 21:10 | ED_ITS ---
HPI - Male Genitourinary General: Chief complaint: Urogenital-Male Stated complaint: Cant Pee\Due to Chemo Time Seen by Provider: 09/10/20 21:10 History of Present Illness: HPI Narrative: Patient had chemotherapy done yesterday and since then has been unable to urinate. Patient has colon cancer. Patient reports pain in the inguinal area. Patient appears well. Patient appears in mild pain. Nursing had placed a Morillo catheter in the triage area due to concern for acute urinary retention. Patient had 600 cc of urine output. Patient reports discomfort due to Morillo catheter at this time. 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 Rectal mass Uncontrolled stage 2 hypertension Surgical History History of colonoscopy with polypectomy History of dental surgery Social History Alcohol intake: never Physical Exam Const: COMMON NORMALS: no acute distress and patient oriented x3 GENERAL APPEARANCE: cooperative HENMT: COMMON NORMALS: normocephalic and Normal external nose present HEAD & SCALP: normal to inspection and normocephalic NOSE: Normal external nose present MOUTH: Normal oral and palatal mucosa present THROAT: posterior oropharynx normal Eye: GENERAL EYE: appearance normal, both eyes and all related structures Neck/C-Spine: COMMON NORMALS: full ROM Chest: COMMONS NORMALS: normal inspection of the chest Resp: COMMON NORMALS: normal respiratory effort EFFORT & INSPECTION: Yes able to speak in complete sentences Cardio: COMMON NORMALS: regular rate and regular rhythm RATE: regular rate RHYTHM: regular rhythm GI: COMMON NORMALS: Soft to palpation PALPATION: Yes Soft to palpation and Yes Tenderness to palpation present (GI) (Suprapubic) : COMMON NORMALS: Yes no CVA tenderness BLADDER/KIDNEY EXAM: Yes no CVA tenderness Back/Pelvis: COMMON NORMALS: no CVA tenderness and thoracic and lumbar spine normal to inspection Extremity: COMMON NORMALS: normal to inspection Neuro: COMMON NORMALS: patient oriented x3 and moves all extremities Psych: COMMON NORMALS: mental status grossly normal and cooperative Skin: COMMON NORMALS: no rashes or lesions noted GENERAL SKIN EXAM: no rashes or lesions noted Course Vital Signs: Vital signs: Vital Signs Temperature 98.3 F 09/10/20 20:40 Pulse Rate 96 09/10/20 20:40 Respiratory Rate 18 09/10/20 20:40 Blood Pressure 168/124 09/10/20 20:40 Pulse Oximetry 96 09/10/20 20:40 MDM - Male MDM Narrative: Medical decision making narrative: 55-year-old male patient with a history of colon cancer comes in today for concerns of inability to urinate. Patient reports inability to pee for the last 24 hours after a chemo treatment yesterday. Patient appears in no acute distress. Nursing had gone ahead and put a Morillo catheter in him before I was able to evaluate him he reports some pain in his penis from the catheterization but otherwise makes no other complaint. Abdomen is soft nontender. Patient had a urine output of 600 cc. Vital signs are normal. Differential diagnosis includes UTI, acute urinary retention, dehydration. Reviewed exam with patient with recommendations for maintaining Morillo catheter for the next 72 hours. Patient wanted to leave after catheterization lab work had been drawn but they were outstanding. We will review when they come in and notify patient if there is any significant abnormality. Patient otherwise needs to follow-up in 72 hours with primary care or urology. Patient reported understanding. Case management referral placed for urology follow-up. Lab Data: Labs: Lab Results 09/10/20 Range/Units 21:30 Urine Color Yellow (Yellow) Urine Appearance Clear (CLEAR) Urine pH 6.5 (5-7) Ur Specific Gravit y 1.015 (1.005-1.030) Urine Protein Neg (Negative) Urine Glucose (UA) Norm (Normal) Urine Ketones Negative (Negative) Urine Blood 2+ H (Negative) Urine Nitrate Negative (Negative) Urine Bilirubin Neg (Negative) Urine Urobilinogen Norm (Negative) mg/dL Ur Leukocyte Ninoska ase Negative (Negative) Urine RBC 0-4 H (0-2) /hpf Urine WBC 0-4 H (0-5) /hpf Ur Squamous Epith Cells 0-4 H (0-5) /hpf Amorphous Sediment Not Reportable Urine Bacteria Trace (NONE) /hpf Urine Mucus 1+ /hpf Discharge Plan Discharge Patient Disposition: Home Clinical Impression: Acute retention of urine Condition: Stable Prescriptions: No Action clonidine HCl 0.1 mg tablet 0.1 mg PO BID 30 Days Qty: 60 RF: 5 hydrocodone-acetaminophen 5-325 mg tablet 1 tab PO Q6H PRN (Reason: pain) Qty: 28 RF: 0 Discharge Orders: Discharge ED (Routine); Ordered 09/10/20 Ordered By: Deshawn Judge Referrals: Billy Cueto MD [Primary Care Provider] - Discharge Diet: Usual diet Discharge Activity: Increase activity as tolerated Patient Instructions: Urinary Retention in Men (ED), Opioid Safety Activity Restrictions/Additional Instructions: Drink plenty of fluids. Follow-up with primary care or urologist in 3 days for recheck and removal of the Morillo catheter. Contact your primary care office tomorrow to review your labs. Return to the emergency room for new concerns or high fever. 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
[2020-09-10] MEDS: HYDROcodone-acetaminophen 10-325 mg Tablet 1 TAB PO (21:31)
[2020-09-10] MEDS: ondansetron 4 MG Tablet PO (21:31)
[2020-09-10 21:52] LABS: Add Urine Microscopic? YES; Bacteria Urine TRACE /hpf; Bilirubin Urine Neg (Negative); Blood Urine 2+ (Negative); Glucose Urine UA Norm (Normal); Ketones Urine Negative (Negative); Leukocyte Esterase Urine Negative (Negative); Mucus Urine 1+ /hpf; Nitrate Urine Negative (Negative); Protein Urine Neg (Negative); RBC Urine 0-4 /hpf (0-2); Specific Gravity, Urine 1.015 (1.005-1.030); Squamous Epithelial Cell Urine 0-4 /hpf (0-5); Urine Appearance Clear (CLEAR); Urine Color Yellow (Yellow); Urobilinogen Urine Norm (Negative); WBC Urine 0-4 /hpf (0-5); pH Urine 6.5 (5-7)
[2020-09-10 22:24] LABS: Basophils % 0.1 %; Hematocrit 45.4 % (42.0-52.0); Hemoglobin 14.5 g/dL (11.7-16.6); Lymphocytes # 3.1 10^3/uL (0.8-4.8); Lymphocytes % 14.3 %; Mean Corpuscular HGB Conc 31.9 g/dL (30.0-36.0); Mean Corpuscular Volume 81.5 fL (80-94); Mean Platelet Volume 9.5 fL (7.4-10.4); Monocytes # 1.1 10^3/uL (0.2-0.9); Monocytes % 5.1 %; Neutrophils # 17.11 10^3/uL (1.8-7.7); Neutrophils % 80.2 %; Nucleated Red Blood Cells % 0 %; Platelet Count 334 10^3/cmm (130-400); Red Blood Count 5.57 10^6/uL (4.1-5.3); White Blood Count 21.3 10^3/uL (4.0-10.0)
[2020-09-10 22:38] VITALS: BP 162/96; PULSE 102; RESP 18; O2SAT 96
[2020-09-10 22:40] LABS: Anion Gap 15.9 (5-19); Blood Urea Nitrogen 16 mg/dL (6-20); Calcium 9.5 mg/dL (8.5-10.5); Carbon Dioxide 20 mmol/L (22-29); Chloride 106 mmol/L (98-107); Glomerular Filtration Rate 77.3 mL/min (90-130); Glucose 90 mg/dL (65-115); Osmolality Calculated 287 mOsm/kg (285-295); Potassium 3.9 mmol/L (3.5-5.1); Sodium 138 mmol/L (136-145)
--- NOTE | 2020-09-11 10:22 | DCPLANNER ---
training and development manager had message to schedule a follow up appointment for patient with Dr. Osuna for acute urinary retention. training and development manager called the office of Dr. Osuna, spoke with [place], gave clinic patients information. training and development manager was told that patients information would be printed and reviewed. Clinic will call patient with appointment information.
--- NOTE | 2020-09-14 08:06 | DCPLANNER ---
Patient has a follow up appointment scheduled for , September 17, [address] at 3:[address] Osuna. Clinic will call patient with appointment information.
--- NOTE | 2020-10-23 14:11 | DCPLANNER ---
Patient had a follow up appointment scheduled for 09.17.[address] Osuna - patient did attend appointment.
== END 2020-09-10 22:39 | disposition home or self-care (01) ==
PROVIDERS: Emergency Provider Nurse Practitioner Family; PCP Family Medicine Adult Medicine
DX: R33.9 Retention of urine, unspecified (principal); I10 Essential (primary) hypertension
CPT/HCPCS: 36415; 51702; 80048; 81001; 85025; 99283; Q0162

== ENCOUNTER 2020-09-11 12:02 | Emergency (ER) | payer MEDICAID, SELFPAY ==
[2020-09-11 12:21] VITALS: BP 98/66; PULSE 89; RESP 18; TEMP 36.9; O2SAT 96; BMI 26.6
--- NOTE | 2020-09-11 14:33 | ED_ITS ---
HPI - Male Genitourinary General: Chief complaint: Urogenital-Male Stated complaint: needs cath looked at Time Seen by Provider: 09/11/20 14:09 History of Present Illness: HPI Narrative: 55-year-old male presents emergency room with complaint of discomfort to the glans of the penis as well as difficulty with voiding. He had a catheter placed yesterday for urinary retention he has a history of rectal CA. He is having discomfort on a continuous sensation needing to void as well as irritation of the catheter the catheter is male malposition when he arrived here it was oriented superiorly and then kinked over the top of his undergarment. No fever sweats or chills MD Complaint: other (Sensation of urinary retention, irritation glans penis) Onset (ago): hour(s) Duration: constant Location: penis Radiation: penis Severity: moderate Quality: dull Relieving factors: none Exacerbating factors: none Context: indwelling catheter Associated symptoms: Deny discharge, dysuria, fevers/chills, hematuria, nausea, rash, swelling, urinary incontinence, urinary retention, mass or vomiting Review of Systems Const: Reports: body aches, fatigue and malaise; Denies: fever(s), chills or change in appetite Card: Denies: chest pain, edema, dyspnea on exertion or orthopnea Resp: Denies: dyspnea, productive cough or non-productive cough GI: Denies: nausea or vomiting : Denies: dysuria, urinary incontinence or hematuria Skin/Breast: Denies: rash or pruritus PFSH ED PFSH: Medical History Decreased glomerular filtration rate (GFR) Elevated glucose level Encounter for wellness examination 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 Rectal mass Uncontrolled stage 2 hypertension Surgical History History of colonoscopy with polypectomy History of dental surgery Social History Alcohol intake: never Physical Exam Const: COMMON NORMALS: no acute distress GENERAL APPEARANCE: cooperative ORIENTATION/CONSCIOUSNESS: Yes awake, Yes oriented to person, Yes oriented to place and Yes oriented to time HENMT: COMMON NORMALS: normocephalic, atraumatic and hearing grossly normal bilaterally HEAD & SCALP: normocephalic and atraumatic Neck/C-Spine: COMMON NORMALS: no JVD Resp: COMMON NORMALS: normal respiratory effort, No retractions, No use of accessory muscles and clear to auscultation bilaterally AUSCULTATION: clear to auscultation bilaterally Cardio: COMMON NORMALS: no JVD, regular rate, regular rhythm and No murmurs present (Cardio) RATE: regular rate RHYTHM: regular rhythm GI: COMMON NORMALS: Soft to palpation and No hepatosplenomegaly present AUSCULTATION: Yes normoactive bowel sounds PALPATION: Yes Soft to palpation, No Tenderness to palpation present (GI), No Guarding due to palpation present (GI) and Yes No hepatosplenomegaly present Extremity: COMMON NORMALS: normal to inspection, capillary refill normal, no clubbing, cyanosis or edema, no calf tenderness and no pedal edema Neuro: SENSORIUM/ORIENTATION: Yes oriented to person, Yes oriented to place a nd Yes oriented to time Skin: COMMON NORMALS: no rashes or lesions noted GENERAL SKIN EXAM: no rashes or lesions noted Course Vital Signs: Vital signs: Vital Signs Temperature 98.4 F 09/11/20 12:21 Pulse Rate 89 09/11/20 12:21 Respiratory Rate 18 09/11/20 12:21 Blood Pressure 98/66 09/11/20 12:21 Pulse Oximetry 96 09/11/20 12:21 MDM - Male MDM Narrative: Medical decision making narrative: After repositioning the catheter he drained several 100 mL of urine out irrigated without difficulty. And he is having some sensation persistent urinary retention due to the malpositioning additionally suspect is having him some bladder spasming. We'll start him on some Pyridium have him follow-up with oncology next week see if they will help her to complete another round of chemo he is can miss his chemotherapy today because oncology infusion center is already closed. Is worsening problems return. Discharge Plan Discharge Patient Disposition: Home Clinical Impression: Acute retention of urine, Rectal cancer Condition: Stable Prescriptions: New Pyridium 200 mg tablet 200 mg PO TID PRN (Reason: pain) Qty: 30 RF: 0 No Action clonidine HCl 0.1 mg tablet 0.1 mg PO BID 30 Days Qty: 60 RF: 5 hydrocodone-acetaminophen 5-325 mg tablet 1 tab PO Q6H PRN (Reason: pain) Qty: 28 RF: 0 Discharge Orders: Discharge ED (Routine); Ordered 09/11/20 Ordered By: Erik Thomas Referrals: Billy Cueto MD [Primary Care Provider] - Discharge Diet: Usual diet Discharge Activity: Resume usual activity Patient Instructions: Opioid Safety Coding Level of Care Code 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
--- NOTE | 2020-09-11 14:35 | PC.NURSE ---
Pt had pulled peasron tubing secure device off of the tape secured on the leg and had the tubing pulled up over the top of the diaper.
[2020-09-11] MEDS: sodium chloride 0.9% 1,000 ML 999 ML IV (14:56)
[2020-09-11 15:27] LABS: Add Urine Culture? Yes; Add Urine Microscopic? YES; Bacteria Urine TRACE /hpf; Bilirubin Urine 1+ (Negative); Blood Urine 3+ (Negative); Glucose Urine UA Norm (Normal); Ketones Urine 1+ (Negative); Leukocyte Esterase Urine Trace (Negative); Mucus Urine TRACE /hpf; Nitrate Urine Negative (Negative); Protein Urine 2+ (Negative); RBC Urine >100 /hpf (0-2); Urine Appearance Cloudy (CLEAR); Urine Color Dark Yellow (Yellow); Urobilinogen Urine Norm (Negative); pH Urine 5 (5-7)
[2020-09-11 17:09] VITALS: PULSE 85; RESP 18; O2SAT 92
== END 2020-09-11 17:10 | disposition home or self-care (01) ==
PROVIDERS: Emergency Provider Family Medicine; PCP Family Medicine Adult Medicine
DX: R33.9 Retention of urine, unspecified (principal); C20 Malignant neoplasm of rectum; I10 Essential (primary) hypertension
CPT/HCPCS: 81001; 87086; 96360; 99283; J7030

== ENCOUNTER 2020-09-23 05:37 | Outpatient (RCR) | payer MEDICAID, SELFPAY ==
[2020-09-15 16:57] LABS: Basophils % 0.5 %; Eosinophils # 0.4 10^3/uL (0.0-0.8); Eosinophils % 6.4 %; Hematocrit 40.4 % (42.0-52.0); Hemoglobin 12.7 g/dL (11.7-16.6); Lymphocytes # 1.7 10^3/uL (0.8-4.8); Lymphocytes % 27.6 %; Mean Corpuscular HGB Conc 31.4 g/dL (30.0-36.0); Mean Corpuscular Hemoglobin 26.3 pg (28.0-34.0); Mean Corpuscular Volume 83.8 fL (80-94); Mean Platelet Volume 10.1 fL (7.4-10.4); Monocytes # 0.4 10^3/uL (0.2-0.9); Monocytes % 6.7 %; Neutrophils # 3.66 10^3/uL (1.8-7.7); Neutrophils % 58.5 %; Nucleated Red Blood Cells % 0 %; Platelet Count 221 10^3/cmm (130-400); Red Blood Count 4.82 10^6/uL (4.1-5.3); Red Cell Distribution Width 14.7 % (12.1-15.1); White Blood Count 6.3 10^3/uL (4.0-10.0)
[2020-09-15 17:36] LABS: Alanine Aminotransferase 8 U/L (0-41); Albumin Level 3.8 g/dL (3.5-5.2); Alkaline Phosphatase 57 IU/L (40-130); Anion Gap 14.6 (5-19); Aspartate Amino Transferase 12 U/L (0-40); Blood Urea Nitrogen 9 mg/dL (6-20); Calcium 8.4 mg/dL (8.5-10.5); Carbon Dioxide 24 mmol/L (22-29); Chloride 101 mmol/L (98-107); Globulin 2.8 g/dL (1.3-4.6); Glomerular Filtration Rate 116.7 mL/min (90-130); Glucose 117 mg/dL (65-115); Osmolality Calculated 282 mOsm/kg (285-295); Potassium 3.6 mmol/L (3.5-5.1); Sodium 136 mmol/L (136-145); Total Bilirubin 0.2 mg/dL (0.15-1.2); Total Protein 6.6 g/dL (6.6-8.7)
--- NOTE | 2020-09-20 16:04 | ONC FU_ITS ---
Dr. Storey follow up note Patient: Amadou Pan Unit #: [id number]: [id number] Dicatated By: Nikia Storey M.D.Date of Visit:Sep 16, 2020 Onc Med Follow-up/Prog Note History of Present Illness: Mr. Amadou Pan, is a 55-year-old gentleman with over a year long history of bleeding per rectum and now stool incontinence for the last 6 to 8 months was referred to Dr. Sales underwent colonoscopy on April 01, 2020 which shows presence of annular masslike lesion 1 cm from anal verge and extends about 9 cm proximally with partial obstruction, and biopsy was done which showed fragments of necrotic colonic mucosa with a dysplastic colonic epithelium suspicious for neoplastic process thus on April 13, 2020, low rectal/anal mass biopsy was repeated final pathology report came back moderately differentiated invasive adenocarcinoma, CEA checked on April 01, 2020 was 17.1, prior to that CT scan of abdomen pelvis was done in October 2019 which showed bowel wall thickening in the rectum with inflammation and shotty reactive adenopathy Liver no mass seen Past medical history significant for mild renal insufficiency, hyperglycemia, proctitis, stool incontinence, hypertension, Patient smoke a pack a day and take alcohol occasionally. Patient denies any history of jaundice weight loss due to poor appetite, no fever chills, no nausea or vomiting, no hemoptysis or hematemesis, no dysuria, no new bony pains Started on total neoadjuvant therapy with FOLFOX, times 6-8 cycle on September 09, 2020, followed by oral Xeloda concurrent with radiation therapy followed by surgical evaluation Came for follow-up, denies any specific complaints, as per patient after first cycle of chemotherapy his stool leaking is much better in fact has stopped, no abdominal pain, no abdominal distention, no nausea or vomiting, no mouth sores, no thrush, no jaundice, no diarrhea or constipation, tolerated first cycle of chemotherapy with FOLFOX well Medications: Catapres (0.1 mg) Tablet Oral b.i.d. Allergies: No Known Allergies. Review of Systems: Review of Systems is not available for this patient. Vital Signs: Performed on Sep 16, 2020 16:48 Height - 66.00 in Weight - 168.4 lbs (LOW) BSA - 1.86 sq.m BMI - 27.18 Temperature - 97.4 F (LOW) Pulse - 104 /min (HIGH) Respiration - 18 /min BP - 160/111 mm(hg) (HIGH) O2 Sat - 97 % Pain - 8 Fatigue - 7 Performance Status: 1 - No physically strenuous activity, but ambulatory and able to carry out light or sedentary work (e.g. office work, light house work). (ECOG) Physical Examination: ENMT - No mouth sores, no jaundice, poor oral hygiene, Respiratory - Lungs are clear to auscultation, Cardiovascular - Regular rate and rhythm of heart, Abdomen - Soft, bowel sounds present, Extremities - No visible edema. Lab/Imaging: Most recent lab results are not available for this patient. 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 With chronic off and on rectal bleeding and stool incontinence of 1 year duration CEA checked on April 01, 2020 was 17.1 Hypertension Uncontrolled glucose level Mild renal insufficiency Chronic smoking Patient was referred to colorectal surgeon and [place] for evaluation and for divergent colostomy but somehow it was not done, case was discussed with Dr. Sales local surgeon regarding diversion colostomy as patient was having liquid stools but patient decided not to proceed with surgery rather with treatment soStarted on total new adjuvant therapy, which include FOLFOX x6-8 cycles followed by concurrent combined chemoradiation with Xeloda, patient started first dose of FOLFOX on September 09, 2020 Plan: Discussed with patient regarding her labs white blood count 6.3 hemoglobin 12.7 hematocrit 40.4 platelets 221,000 CMP within normal limits Clinically, patient doing well with no new signs symptoms, tolerated first cycle of neoadjuvant therapy with FOLFOX well, he will return to clinic in 1 week with CBC and CMP blood count looks reasonable we will proceed with cycle #2 FOLFOX. Patient was advised in case there is any abdominal distention, or abdominal pain or severe constipation, he need to call us or go to hospital immediately as there is a concern about possible obstruction due to large rectal mass Signed By: Nikia Storey M.D. <<Signature on File>>
[2020-09-22 15:49] LABS: Basophils % 0.8 %; Eosinophils # 0.2 10^3/uL (0.0-0.8); Eosinophils % 4.2 %; Hematocrit 38.6 % (42.0-52.0); Hemoglobin 12.1 g/dL (11.7-16.6); Lymphocytes # 1.6 10^3/uL (0.8-4.8); Mean Corpuscular HGB Conc 31.3 g/dL (30.0-36.0); Mean Corpuscular Hemoglobin 25.9 pg (28.0-34.0); Mean Corpuscular Volume 82.7 fL (80-94); Mean Platelet Volume 9.4 fL (7.4-10.4); Monocytes # 0.4 10^3/uL (0.2-0.9); Monocytes % 8.5 %; Neutrophils # 2.47 10^3/uL (1.8-7.7); Neutrophils % 52.3 %; Nucleated Red Blood Cells % 0 %; Platelet Count 216 10^3/cmm (130-400); Red Blood Count 4.67 10^6/uL (4.1-5.3); Red Cell Distribution Width 14.9 % (12.1-15.1); White Blood Count 4.7 10^3/uL (4.0-10.0)
[2020-09-22 16:33] LABS: Alanine Aminotransferase 9 U/L (0-41); Albumin Level 3.8 g/dL (3.5-5.2); Alkaline Phosphatase 67 IU/L (40-130); Anion Gap 14.5 (5-19); Aspartate Amino Transferase 15 U/L (0-40); Blood Urea Nitrogen 6 mg/dL (6-20); Calcium 8.7 mg/dL (8.5-10.5); Carbon Dioxide 22 mmol/L (22-29); Chloride 106 mmol/L (98-107); Globulin 2.8 g/dL (1.3-4.6); Glucose 77 mg/dL (65-115); Osmolality Calculated 284 mOsm/kg (285-295); Potassium 3.5 mmol/L (3.5-5.1); Sodium 139 mmol/L (136-145); Total Bilirubin 0.3 mg/dL (0.15-1.2); Total Protein 6.6 g/dL (6.6-8.7)
[2020-09-23] MEDS: dextrose 5% 250 ML 75 ML IV (10:35)
[2020-09-23] MEDS: palonosetron 0.25 mg/5 mL SDV IVP (10:36)
--- NOTE | 2020-09-23 18:30 | ONC FU_ITS ---
Dr. Storey follow up note Patient: Amadou Pan Unit #: [id number]: [id number] Dicatated By: Nikia Storey M.D.Date of Visit:Sep 23, 2020 Onc Med Follow-up/Prog Note History of Present Illness: Mr. Amadou Pan, is a 55-year-old gentleman with over a year long history of bleeding per rectum and now stool incontinence for the last 6 to 8 months was referred to Dr. Sales underwent colonoscopy on April 01, 2020 which shows presence of annular masslike lesion 1 cm from anal verge and extends about 9 cm proximally with partial obstruction, and biopsy was done which showed fragments of necrotic colonic mucosa with a dysplastic colonic epithelium suspicious for neoplastic process thus on April 13, 2020, low rectal/anal mass biopsy was repeated final pathology report came back moderately differentiated invasive adenocarcinoma, CEA checked on April 01, 2020 was 17.1, prior to that CT scan of abdomen pelvis was done in October 2019 which showed bowel wall thickening in the rectum with inflammation and shotty reactive adenopathy Liver no mass seen Past medical history significant for mild renal insufficiency, hyperglycemia, proctitis, stool incontinence, hypertension, Patient smoke a pack a day and take alcohol occasionally. Patient denies any history of jaundice weight loss due to poor appetite, no fever chills, no nausea or vomiting, no hemoptysis or hematemesis, no dysuria, no new bony pains Started on total neoadjuvant therapy with FOLFOX, times 6-8 cycle on September 09, 2020, followed by oral Xeloda concurrent with radiation therapy followed by surgical evaluation Came for follow-up, denies any specific complaints except chronic pain for which patient take narcotics but now as per patient his grandson did not give him his pain medication which was refilled recently. Otherwise no mouth sores, no diarrhea or constipation, stool leaking has improved significantly, no abdominal pain no mouth sores, tolerated first cycle of chemotherapy with FOLFOX well Medications: Catapres (0.1 mg) Tablet Oral b.i.d. Allergies: No Known Allergies. Review of Systems: Review of Systems is not available for this patient. Vital Signs: Performed on Sep 23, 2020 15:05 Height - 66.00 in Temperature - 97.9 F (LOW) Pulse - 76 /min Respiration - 18 /min BP - 139/92 mm(hg) O2 Sat - 99 % Performed on Sep 23, 2020 09:41 Height - 66.00 in Weight - 170.2 lbs (HIGH) BSA - 1.87 sq.m BMI - 27.47 Temperature - 98.9 F (HIGH) Pulse - 93 /min Respiration - 18 /min BP - 138/93 mm(hg) O2 Sat - 99 % Pain - 8 Fatigue - 7 Performance Status: 0 - Fully active, able to carry on all predisease activities without restrictions. (ECOG) Physical Examination: ENMT - . No mouth sores, no thrush, no jaundice, Respiratory - Lungs are clear to auscultation, Cardiovascular - Regular rate and rhythm of heart, Abdomen - Soft, bowel sounds present, Extremities - No visible edema. Lab/Imaging: Most recent lab results are not available for this patient. 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 With chronic off and on rectal bleeding and stool incontinence of 1 year duration CEA checked on April 01, 2020 was 17.1 Hypertension Uncontrolled glucose level Mild renal insufficiency Chronic smoking Patient was referred to colorectal surgeon and [place] for evaluation and for divergent colostomy but somehow it was not done, case was discussed with Dr. Sales local surgeon regarding diversion colostomy as patient was having liquid stools but patient decided not to proceed with surgery rather with treatment soStarted on total new adjuvant therapy, which include FOLFOX x6-8 cycles followed by concurrent combined chemoradiation with Xeloda, patient started first dose of FOLFOX on September 09, 2020 Plan: Discussed with patient regarding his labs white blood count 4.7 hemoglobin 12.1 hematocrit 38.6 platelets 216,000 CMP within normal limits We will proceed with cycle #2 of FOLFOX today and then he will return to clinic in 2 weeks with CBC CMP. As far as pain medication concerned, patient was advised to keep his medication with him and in case his grandson is stealing his medication he need to report to the police and will also consider social service to evaluate his narcotics related issues at home Signed By: Nikia Storey M.D. <<Signature on File>>
== END 2020-10-03 23:59 | disposition home or self-care (01) ==
LOC: ONCMED 05:37
PROVIDERS: PCP Family Medicine Adult Medicine; Visit Provider Internal Medicine Hematology & Oncology
DX: Z51.11 Encounter for antineoplastic chemotherapy (principal); C20 Malignant neoplasm of rectum; K62.5 Hemorrhage of anus and rectum; I10 Essential (primary) hypertension; R73.09 Other abnormal glucose; N28.9 Disorder of kidney and ureter, unspecified; F17.210 Nicotine dependence, cigarettes, uncomplicated; Z79.899 Other long term (current) drug therapy
CPT/HCPCS: 36591; 36593; 80053; 85025; 96367; 96368; 96374; 96411; 96413; 96415; 96416; 96523; 99214; 99215; J0640; J1100; J2469; J9190; J9263

== ENCOUNTER 2020-10-30 05:37 | Outpatient (RCR) | payer MEDICAID, SELFPAY ==
[2020-10-07 09:55] LABS: Basophils # 0.1 10^3/uL (0.0-0.1); Eosinophils # 0.1 10^3/uL (0.0-0.8); Eosinophils % 2.4 %; Hematocrit 40.8 % (42.0-52.0); Hemoglobin 12.6 g/dL (11.7-16.6); Lymphocytes # 2.3 10^3/uL (0.8-4.8); Lymphocytes % 44.9 %; Mean Corpuscular HGB Conc 30.9 g/dL (30.0-36.0); Mean Corpuscular Hemoglobin 25.9 pg (28.0-34.0); Mean Corpuscular Volume 83.8 fL (80-94); Mean Platelet Volume 9.5 fL (7.4-10.4); Monocytes # 0.7 10^3/uL (0.2-0.9); Monocytes % 13.8 %; Neutrophils # 1.91 10^3/uL (1.8-7.7); Neutrophils % 37.7 %; Nucleated Red Blood Cells % 0 %; Platelet Count 248 10^3/cmm (130-400); Red Blood Count 4.87 10^6/uL (4.1-5.3); Red Cell Distribution Width 15.8 % (12.1-15.1); White Blood Count 5.1 10^3/uL (4.0-10.0)
[2020-10-07 10:14] LABS: Alanine Aminotransferase 9 U/L (0-41); Alkaline Phosphatase 65 IU/L (40-130); Anion Gap 16.6 (5-19); Aspartate Amino Transferase 12 U/L (0-40); Blood Urea Nitrogen 6 mg/dL (6-20); Calcium 8.6 mg/dL (8.5-10.5); Carbon Dioxide 19 mmol/L (22-29); Chloride 108 mmol/L (98-107); Globulin 2.8 g/dL (1.3-4.6); Glucose 72 mg/dL (65-115); Osmolality Calculated 286 mOsm/kg (285-295); Potassium 3.6 mmol/L (3.5-5.1); Sodium 140 mmol/L (136-145); Total Bilirubin 0.3 mg/dL (0.15-1.2); Total Protein 6.8 g/dL (6.6-8.7)
[2020-10-07] MEDS: dextrose 5% 250 ML 75 ML IV (11:25)
[2020-10-07] MEDS: palonosetron 0.25 mg/5 mL SDV IVP (11:25)
--- NOTE | 2020-10-07 15:41 | ONC FU_ITS ---
Dr. Storey follow up note Patient: Amadou Pan Unit #: [id number]: 1965 Dicatated By: Nikia Storey M.D.Date of Visit:Oct 07, 2020 Onc Med Follow-up/Prog Note History of Present Illness: Mr. Amadou Pan, is a 55-year-old gentleman with over a year long history of bleeding per rectum and now stool incontinence for the last 6 to 8 months was referred to Dr. Sales underwent colonoscopy on April 01, 2020 which shows presence of annular masslike lesion 1 cm from anal verge and extends about 9 cm proximally with partial obstruction, and biopsy was done which showed fragments of necrotic colonic mucosa with a dysplastic colonic epithelium suspicious for neoplastic process thus on April 13, 2020, low rectal/anal mass biopsy was repeated final pathology report came back moderately differentiated invasive adenocarcinoma, CEA checked on April 01, 2020 was 17.1, prior to that CT scan of abdomen pelvis was done in October 2019 which showed bowel wall thickening in the rectum with inflammation and shotty reactive adenopathy Liver no mass seen Past medical history significant for mild renal insufficiency, hyperglycemia, proctitis, stool incontinence, hypertension, Patient smoke a pack a day and take alcohol occasionally. Patient denies any history of jaundice weight loss due to poor appetite, no fever chills, no nausea or vomiting, no hemoptysis or hematemesis, no dysuria, no new bony pains Started on total neoadjuvant therapy with FOLFOX, times 6-8 cycle on September 09, 2020, followed by oral Xeloda concurrent with radiation therapy followed by surgical evaluation Came for follow-up, denies any specific complaints except persistent but improving stool leakage, no fever chills, no nausea or vomiting, no diarrhea or constipation, as per patient he was supposed to come back for his chemo pump removal after his last chemotherapy with FOLFOX but somehow he did not come in ahead Port-A-Cath accessed till yesterday when his needle fell off. Denies any tenderness or pain at Port-A-Cath site, denies any fever chills denies any nausea or vomiting denies any diarrhea constipation denies any mouth sores denies any abdominal pain denies any jaundice denies any hand-foot rash or skin rash, tolerating FOLFOX well otherwise Medications: Catapres (0.1 mg) Tablet Oral b.i.d. Allergies: No Known Allergies. Review of Systems: Review of Systems is not available for this patient. Vital Signs: Performed on Oct 07, 2020 10:40 Height - 66.00 in Weight - 162.4 lbs (LOW) BSA - 1.83 sq.m BMI - 26.21 Temperature - 97.9 F (LOW) Pulse - 89 /min Respiration - 18 /min BP - 142/97 mm(hg) (HIGH) O2 Sat - 99 % Pain - 8 Fatigue - 5 Performance Status: 0 - Fully active, able to carry on all predisease activities without restrictions. (ECOG) Physical Examination: ENMT - No mouth sores, no thrush, no jaundice, Respiratory - Lungs are clear to auscultation, Cardiovascular - Regular rate and rhythm of heart , Abdomen - Soft, bowel sounds present, Extremities - No visible edema. Lab/Imaging: Most recent lab results are not available for this patient. 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 With chronic off and on rectal bleeding and stool incontinence of 1 year duration CEA checked on April 01, 2020 was 17.1 Hypertension Uncontrolled glucose level Mild renal insufficiency Chronic smoking Patient was referred to colorectal surgeon and [place] for evaluation and for divergent colostomy but somehow it was not done, case was discussed with Dr. Sales local surgeon regarding diversion colostomy as patient was having liquid stools but patient decided not to proceed with surgery rather with treatment soStarted on total new adjuvant therapy, which include FOLFOX x6-8 cycles followed by concurrent combined chemoradiation with Xeloda, patient started first dose of FOLFOX on September 09, 2020 Plan: Discussed with patient regarding his labs white blood count 5.1 hemoglobin 12.6 hematocrit 40.8 platelets 248,000 CMP within normal limits Clinically, patient doing well with no new signs symptom suggestive of disease progression, tolerating neoadjuvant therapy with FOLFOX well, will proceed with next cycle of chemotherapy with FOLFOX today and then patient was advised to come back after 48 hours for chemotherapy pump removal, nursing was advised to give him written instructions and was also encouraged to call in case there is any confusion regarding chemotherapy pump Return to clinic in 2 weeks with CBC CMP Signed By: Nikia Storey M.D. <<Signature on File>>
[2020-10-21 08:44] LABS: Basophils % 0.6 %; Eosinophils # 0.1 10^3/uL (0.0-0.8); Eosinophils % 2.3 %; Hematocrit 40.4 % (42.0-52.0); Lymphocytes # 1.8 10^3/uL (0.8-4.8); Mean Corpuscular HGB Conc 32.2 g/dL (30.0-36.0); Mean Corpuscular Hemoglobin 26.5 pg (28.0-34.0); Mean Corpuscular Volume 82.4 fl (80-94); Mean Platelet Volume 9.2 fL (7.4-10.4); Monocytes # 0.7 10^3/uL (0.2-0.9); Monocytes % 20.1 %; Nucleated Red Blood Cells % 0 %; Platelet Count 129 10^3/cmm (130-400); White Blood Count 3.5 10^3/uL (4.0-10.0)
[2020-10-21 09:11] LABS: Neutrophils # 0.87 10^3/uL (1.8-7.7)
[2020-10-21 09:26] LABS: Alanine Aminotransferase 12 U/L (0-41); Alkaline Phosphatase 61 IU/L (40-130); Anion Gap 13.2 (5-19); Aspartate Amino Transferase 14 U/L (0-40); Blood Urea Nitrogen 8 mg/dL (6-20); Calcium 8.8 mg/dL (8.5-10.5); Carbon Dioxide 23 mmol/L (22-29); Chloride 104 mmol/L (98-107); Globulin 2.6 g/dL (1.3-4.6); Glomerular Filtration Rate 87.3 mL/min (90-130); Glucose 99 mg/dL (65-115); Osmolality Calculated 282 mOsm/kg (285-295); Potassium 3.2 mmol/L (3.5-5.1); Sodium 137 mmol/L (136-145); Total Bilirubin 0.5 mg/dL (0.15-1.2); Total Protein 6.6 g/dL (6.6-8.7)
[2020-10-21] MEDS: morphine 4 mg/mL SDV 1 mL 2 MG IV (10:00)
[2020-10-21] MEDS: sodium chloride 0.9% 500 ML 999 ML IV (10:02)
[2020-10-21] MEDS: HYDROcodone-acetaminophen 10-325 mg Tablet 0.5 TAB PO (10:20)
[2020-10-21] MEDS: sodium chlor 0.9% + KCl 20 mEq 20 MEQ/1,000 ML BAG 500 MEQ IV (10:34)
--- NOTE | 2020-10-21 11:33 | ONC FU_ITS ---
Dr. Storey follow up note Patient: Amadou Pan Unit #: [id number]: 1965 Dicatated By: Nikia Storey M.D.Date of Visit:Oct 21, 2020 Onc Med Follow-up/Prog Note History of Present Illness: Mr. Amadou Pan, is a 55-year-old gentleman with over a year long history of bleeding per rectum and now stool incontinence for the last 6 to 8 months was referred to Dr. Sales underwent colonoscopy on April 01, 2020 which shows presence of annular masslike lesion 1 cm from anal verge and extends about 9 cm proximally with partial obstruction, and biopsy was done which showed fragments of necrotic colonic mucosa with a dysplastic colonic epithelium suspicious for neoplastic process thus on April 13, 2020, low rectal/anal mass biopsy was repeated final pathology report came back moderately differentiated invasive adenocarcinoma, CEA checked on April 01, 2020 was 17.1, prior to that CT scan of abdomen pelvis was done in October 2019 which showed bowel wall thickening in the rectum with inflammation and shotty reactive adenopathy Liver no mass seen Past medical history significant for mild renal insufficiency, hyperglycemia, proctitis, stool incontinence, hypertension, Patient smoke a pack a day and take alcohol occasionally. Patient denies any history of jaundice weight loss due to poor appetite, no fever chills, no nausea or vomiting, no hemoptysis or hematemesis, no dysuria, no new bony pains Started on total neoadjuvant therapy with FOLFOX, times 6-8 cycle on September 09, 2020, followed by oral Xeloda concurrent with radiation therapy followed by surgical evaluation Came for follow-up, complaining of lower abdominal pain as he ran out of his pain medication no constipation but diarrhea which is under control, no nausea or vomiting, no fever chills, no dysuria or hematuria, no mouth sores, no jaundice tolerating neoadjuvant chemotherapy with FOLFOX well otherwise Medications: Catapres (0.1 mg) Tablet Oral b.i.d. Allergies: No Known Allergies. Review of Systems: Review of Systems is not available for this patient. Vital Signs: Vitals are not available for this patient. Performance Status: 1 - No physically strenuous activity, but ambulatory and able to carry out light or sedentary work (e.g. office work, light house work). (ECOG) Physical Examination: ENMT - No mouth sores but dry oral mucosa no mucositis, Respiratory - Lungs are clear to auscultation, Cardiovascular - Regular rate and rhythm of heart, Abdomen - Soft, bowel sounds present, Extremities - No visible edema. Lab/Imaging: Most recent lab results are not available for this patient. 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 With chronic off and on rectal bleeding and stool incontinence of 1 year duration CEA checked on April 01, 2020 was 17.1 Hypertension Uncontrolled glucose level Mild renal insufficiency Chronic smoking Patient was referred to colorectal surgeon and [place] for evaluation and for divergent colostomy but somehow it was not done, case was discussed with Dr. Sales local surgeon regarding diversion colostomy as patient was having liquid stools but patient decided not to proceed with surgery rather with treatment soStarted on total new adjuvant therapy, which include FOLFOX x6-8 cycles followed by concurrent combined chemoradiation with Xeloda, patient started first dose of FOLFOX on September 09, 2020 Plan: Discussed with patient regarding his labs white blood count 3.5 hemoglobin 13 hematocrit 40.4 platelets 129,000 ANC 870 CMP within normal limit except potassium 3.2, magnesium within normal range Clinically, patient doing reasonably well now with mild to moderate distress due to off and on lower abdominal/pelvic pain which is under control with current pain medication but patient ran out of his pain medication so we will get him dose of morphine 2 mg to control his symptoms and give him prescription for his pain medication and also consider hydration as clinically he appears dehydrated and will do potassium supplement and he will also take potassium by mouth, 20 mEq daily for 1 week return to clinic in 1 week with CBC CMP as his follow-up CBC shows neutropenia probably due to chemotherapy and if follow-up CBC done in next week shows resolution of neutropenia will consider cycle #3 with FOLFOX and may use daily Neupogen in between to maintain chemotherapy schedule and dose. Signed By: Nikia Storey M.D. <<Signature on File>>
[2020-10-27 15:53] LABS: Basophils # 0.1 10^3/uL (0.0-0.1); Basophils % 0.8 %; Eosinophils # 0.1 10^3/uL (0.0-0.8); Eosinophils % 1.1 %; Hematocrit 39.4 % (42.0-52.0); Hemoglobin 12.6 g/dL (11.7-16.6); Lymphocytes # 2.5 10^3/uL (0.8-4.8); Lymphocytes % 27.5 %; Mean Corpuscular Hemoglobin 26.9 pg (28.0-34.0); Mean Corpuscular Volume 84.2 fl (80-94); Mean Platelet Volume 9.4 fL (7.4-10.4); Monocytes # 1.7 10^3/uL (0.2-0.9); Monocytes % 18.2 %; Neutrophils # 4.54 10^3/uL (1.8-7.7); Neutrophils % 49.5 %; Nucleated Red Blood Cells % 0 %; Platelet Count 305 10^3/cmm (130-400); Red Blood Count 4.68 10^6/uL (4.1-5.3); Red Cell Distribution Width 17.2 % (12.1-15.1); White Blood Count 9.2 10^3/uL (4.0-10.0)
[2020-10-27 16:15] LABS: Alanine Aminotransferase 9 U/L (0-41); Albumin Level 3.6 g/dL (3.5-5.2); Alkaline Phosphatase 89 IU/L (40-130); Anion Gap 14.8 (5-19); Aspartate Amino Transferase 10 U/L (0-40); Blood Urea Nitrogen 5 mg/dL (6-20); Carbon Dioxide 22 mmol/L (22-29); Chloride 103 mmol/L (98-107); Globulin 2.8 g/dL (1.3-4.6); Glomerular Filtration Rate 139.4 mL/min (90-130); Glucose 80 mg/dL (65-115); Osmolality Calculated 278 mOsm/kg (285-295); Potassium 3.8 mmol/L (3.5-5.1); Sodium 136 mmol/L (136-145); Total Bilirubin 0.3 mg/dL (0.15-1.2); Total Protein 6.4 g/dL (6.6-8.7)
[2020-10-28] MEDS: dextrose 5% 250 ML 75 ML IV (09:12)
[2020-10-28] MEDS: palonosetron 0.25 mg/5 mL SDV IVP (09:12)
--- NOTE | 2020-11-01 20:17 | ONC FU_ITS ---
Dr. Storey follow up note Patient: Amadou Pan Unit #: [id number]: 1965 Dicatated By: Nikia Storey M.D.Date of Visit:Oct 28, 2020 Onc Med Follow-up/Prog Note History of Present Illness: Mr. Amadou Pan, is a 55-year-old gentleman with over a year long history of bleeding per rectum and now stool incontinence for the last 6 to 8 months was referred to Dr. Sales underwent colonoscopy on April 01, 2020 which shows presence of annular masslike lesion 1 cm from anal verge and extends about 9 cm proximally with partial obstruction, and biopsy was done which showed fragments of necrotic colonic mucosa with a dysplastic colonic epithelium suspicious for neoplastic process thus on April 13, 2020, low rectal/anal mass biopsy was repeated final pathology report came back moderately differentiated invasive adenocarcinoma, CEA checked on April 01, 2020 was 17.1, prior to that CT scan of abdomen pelvis was done in October 2019 which showed bowel wall thickening in the rectum with inflammation and shotty reactive adenopathy Liver no mass seen Past medical history significant for mild renal insufficiency, hyperglycemia, proctitis, stool incontinence, hypertension, Patient smoke a pack a day and take alcohol occasionally. Patient denies any history of jaundice weight loss due to poor appetite, no fever chills, no nausea or vomiting, no hemoptysis or hematemesis, no dysuria, no new bony pains Started on total neoadjuvant therapy with FOLFOX, times 6-8 cycle on September 09, 2020, followed by oral Xeloda concurrent with radiation therapy followed by surgical evaluation Came for follow-up, denies any specific complaint except self-limiting mouth sores for 2 3 days after last chemotherapy and also complaining of mild diarrhea but not improving, no skin rash, no hand-foot rash, no jaundice, no abdominal pain, no fever chills, no peripheral neuropathy, tolerating neoadjuvant therapy with FOLFOX well Medications: Catapres (0.1 mg) Tablet Oral b.i.d. Allergies: No Known Allergies. Review of Systems: Review of Systems is not available for this patient. Vital Signs: Performed on Oct 28, 2020 08:12 Height - 66.00 in Weight - 158.0 lbs (LOW) BSA - 1.81 sq.m BMI - 25.50 Temperature - 97.4 F (LOW) Pulse - 90 /min Respiration - 18 /min BP - 150/101 mm(hg) (HIGH) O2 Sat - 98 % Pain - 0 Performance Status: 0 - Fully active, able to carry on all predisease activities without restrictions. (ECOG) Physical Examination: ENMT - No mouth sores but poor oral hygiene, Respiratory - Lungs are clear to auscultation, Cardiovascular - Regular rate and rhythm of heart, Abdomen - Soft, bowel sounds present, Extremities - No visible edema or rash. Lab/Imaging: Most recent lab results are not available for this patient. 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 With chronic off and on rectal bleeding and stool incontinence of 1 year duration CEA checked on April 01, 2020 was 17.1 Hypertension Uncontrolled glucose level Mild renal insufficiency Chronic smoking Patient was referred to colorectal surgeon and [place] for evaluation and for divergent colostomy but somehow it was not done, case was discussed with Dr. Sales local surgeon regarding diversion colostomy as patient was having liquid stools but patient decided not to proceed with surgery rather with treatment soStarted on total new adjuvant therapy, which include FOLFOX x6-8 cycles followed by concurrent combined chemoradiation with Xeloda, patient started first dose of FOLFOX on September 09, 2020 Plan: Discussed with patient regarding his labs white blood count 9.2 hemoglobin 12.6 hematocrit 39.4 platelets 305,000 CMP within normal limits Clinically, patient doing well with no new signs symptoms, tolerating neoadjuvant therapy with FOLFOX well but with expected side effect e.g. self-limiting mouth sores and now with mild diarrhea at this point will consider reducing his 5-FU dose by 10% to minimize toxicity and proceed with next cycle #4 with FOLFOX today and then he will return to clinic in 2 weeks with CBC CMP and follow-up CT scan of abdomen pelvis Signed By: Nikia Storey M.D. <<Signature on File>>
== END 2020-11-03 23:59 | disposition home or self-care (01) ==
LOC: ONCMED 05:37
PROVIDERS: PCP Family Medicine Adult Medicine; Visit Provider Internal Medicine Hematology & Oncology
DX: Z51.11 Encounter for antineoplastic chemotherapy (principal); C20 Malignant neoplasm of rectum; K62.5 Hemorrhage of anus and rectum; I10 Essential (primary) hypertension; R73.09 Other abnormal glucose; N17.9 Acute kidney failure, unspecified; F17.210 Nicotine dependence, cigarettes, uncomplicated; Z79.899 Other long term (current) drug therapy
CPT/HCPCS: 36415; 36591; 80053; 83735; 85025; 96365; 96366; 96367; 96368; 96375; 96411; 96413; 96415; 96416; 96523; 99215; J0640; J1100; J2270; J2469; J7040; J9190; J9263

== ENCOUNTER 2020-11-10 06:31 | Outpatient (RCR) | payer MEDICAID, SELFPAY ==
[2020-11-10 16:42] LABS: Basophils % 0.5 %; Eosinophils # 0.4 10^3/uL (0.0-0.8); Eosinophils % 5.8 %; Hematocrit 39.7 % (42.0-52.0); Hemoglobin 12.8 g/dL (11.7-16.6); Lymphocytes # 1.8 10^3/uL (0.8-4.8); Lymphocytes % 30.1 %; Mean Corpuscular HGB Conc 32.2 g/dL (30.0-36.0); Mean Corpuscular Hemoglobin 27.2 pg (28.0-34.0); Mean Corpuscular Volume 84.5 fl (80-94); Mean Platelet Volume 8.9 fL (7.4-10.4); Monocytes # 0.7 10^3/uL (0.2-0.9); Monocytes % 12.1 %; Neutrophils % 51.3 %; Nucleated Red Blood Cells % 0 %; Platelet Count 205 10^3/cmm (130-400); Red Cell Distribution Width 17.6 % (12.1-15.1)
[2020-11-10 17:35] LABS: Alanine Aminotransferase 8 U/L (0-41); Albumin Level 3.8 g/dL (3.5-5.2); Alkaline Phosphatase 68 IU/L (40-130); Anion Gap 17.3 (5-19); Aspartate Amino Transferase 15 U/L (0-40); Blood Urea Nitrogen 7 mg/dL (6-20); Calcium 8.9 mg/dL (8.5-10.5); Carbon Dioxide 22 mmol/L (22-29); Chloride 105 mmol/L (98-107); Globulin 2.8 g/dL (1.3-4.6); Glucose 88 mg/dL (65-115); Osmolality Calculated 287 mOsm/kg (285-295); Potassium 4.3 mmol/L (3.5-5.1); Sodium 140 mmol/L (136-145); Total Bilirubin 0.4 mg/dL (0.15-1.2); Total Protein 6.6 g/dL (6.6-8.7)
== END 2020-11-13 10:00 | disposition home or self-care (01) ==
LOC: ONCMED 06:31
PROVIDERS: PCP Family Medicine Adult Medicine; Visit Provider Internal Medicine Hematology & Oncology
DX: C20 Malignant neoplasm of rectum (principal); Z79.899 Other long term (current) drug therapy
CPT/HCPCS: 36591; 80053; 82378; 85025

== ENCOUNTER 2020-11-13 10:05 | Outpatient (CLI) | payer MEDICAID, SELFPAY ==
--- NOTE | 2020-11-13 10:26 | CT_ITS ---
WS: [id number] CT ABDOMEN PELVIS TECHNIQUE: Contrast-enhanced CT of the abdomen and pelvis with coronal and sagittal reformatted image s. CLINICAL INFORMATION: RECTAL CANCER COMPARISON: October 24, 2019 DLP: 1413.[address] scans at [facility] use at least one of these dose optimization techniques: automated e xposure control; mA and/or kV adjustment per patient size (includes targeted exams where dose is matc hed to clinical indication); or iterative reconstruction. FINDINGS: Diffuse fatty infiltration of the liver. Enlarged right hepatic lobe. Mild diffuse circumferential th ickening with submucosal enhancement involving the rectum extending into the distal sigmoid. Diffuse associated luminal narrowing. Findings presumably due to treatment-related changes. Recommend correla tion with clinical history. No focal mass. No perirectal lymphadenopathy. Proximal sigmoid colon is normal in appearance. Prostate calcification. Normal bladder. No pelvic or inguinal lymphadenopathy. No evidence of large or small bowel obstruction. Normal appendix in the rig ht lower quadrant. Normal spleen. Normal GE junction. Lung bases are well aerated. Normal pancreatic parenchymal enhance ment. Small left adrenal nodule unchanged from previous measuring 8 mm. This statistically most likel y represents adenoma but technically indeterminate. Right adrenal gland is normal. A few small spleni c low-attenuation lesions likely splenic cysts or hemangiomas appear unchanged. Largest measures 10 m m. No upper abdominal lymphadenopathy. No periaortic or retroperitoneal lymphadenopathy. Normal renal p arenchymal enhancement. Bilateral cortical atrophy. Small bilateral renal cysts. No pelvic or inguina l lymphadenopathy. Disc space narrowing worse L5-S1. Tiny fat-containing helical hernia. CT/CT abdomen pelvis w con* [id number] IMPRESSION: 1. Diffuse circumferential wall thickening involving the rectum extending into the distal sigmoid. Associated luminal narrowing. Narrowing extends over appro ximately 7 cm. Findings presumably due to treatment-related changes however rec ommend correlation with clinical history and prior therapy. No focal mass or le adri. 2. No inguinal or pelvic lymphadenopathy. No abdominal lymphadenopathy. No per irectal lymphadenopathy. 3. Small left adrenal nodule measuring 8 mm statistically most likely represen ts small adenoma unchanged from previous. 4. A few small splenic low-attenuation lesions likely splenic cysts or hemangi omas appear unchanged. Largest measures 10 mm. 5. Small bilateral renal cortical cysts. 6. Prostate calcification. Prostate measures 4.0 cm 7. Sigmoid diverticulosis. No evidence of acute diverticulitis. 8. No other significant changes from previous.
[2020-11-13] MEDS: iohexol 300 mg/mL 100 mL Btl IV (12:04)
[2020-11-13] MEDS: iohexol 300 mg/mL 50 mL Btl PO (12:04)
== END 2020-11-13 10:06 | disposition home or self-care (01) ==
LOC: RAD 10:07
PROVIDERS: PCP Family Medicine Adult Medicine; Visit Provider Internal Medicine Hematology & Oncology
DX: C20 Malignant neoplasm of rectum (principal); K57.30 Diverticulosis of large intestine without perforation or abscess without bleeding; Q61.02 Congenital multiple renal cysts; D49.7 Neoplasm of unspecified behavior of endocrine glands and other parts of nervous system
CPT/HCPCS: 74177

== ENCOUNTER 2020-12-02 06:26 | Outpatient (RCR) | payer MEDICAID, SELFPAY ==
[2020-11-17 14:47] LABS: Basophils # 0.1 10^3/uL (0.0-0.1); Basophils % 1.2 %; Eosinophils # 0.3 10^3/uL (0.0-0.8); Eosinophils % 6.6 %; Hematocrit 43.5 % (42.0-52.0); Hemoglobin 13.9 g/dL (11.7-16.6); Lymphocytes # 1.9 10^3/uL (0.8-4.8); Lymphocytes % 45.3 %; Mean Corpuscular Hemoglobin 27.3 pg (28.0-34.0); Mean Corpuscular Volume 85.3 fl (80-94); Mean Platelet Volume 9.5 fL (7.4-10.4); Monocytes # 1.1 10^3/uL (0.2-0.9); Monocytes % 26.4 %; Nucleated Red Blood Cells % 0 %; Platelet Count 340 10^3/cmm (130-400); Red Cell Distribution Width 18.8 % (12.1-15.1); White Blood Count 4.2 10^3/uL (4.0-10.0)
[2020-11-17 15:09] LABS: Carcinoembryonic Antigen 8.9 ng/mL (0.0-4.7)
[2020-11-17 15:21] LABS: Alanine Aminotransferase 6 U/L (0-41); Albumin Level 3.8 g/dL (3.5-5.2); Alkaline Phosphatase 85 IU/L (40-130); Anion Gap 11.6 (5-19); Aspartate Amino Transferase 14 U/L (0-40); Blood Urea Nitrogen 6 mg/dL (6-20); Calcium 8.8 mg/dL (8.5-10.5); Carbon Dioxide 25 mmol/L (22-29); Chloride 101 mmol/L (98-107); Globulin 2.9 g/dL (1.3-4.6); Glucose 89 mg/dL (65-115); Osmolality Calculated 275 mOsm/kg (285-295); Potassium 3.6 mmol/L (3.5-5.1); Sodium 134 mmol/L (136-145); Total Bilirubin 0.3 mg/dL (0.15-1.2); Total Protein 6.7 g/dL (6.6-8.7)
[2020-11-17 16:57] LABS: Neutrophils # 0.85 10^3/uL (1.8-7.7)
[2020-11-18 09:29] LABS: Hematocrit 41.9 % (42.0-52.0); Hemoglobin 13.7 g/dL (11.7-16.6); Mean Corpuscular HGB Conc 32.7 g/dL (30.0-36.0); Mean Corpuscular Hemoglobin 27.9 pg (28.0-34.0); Mean Corpuscular Volume 85.3 fl (80-94); Mean Platelet Volume 9.1 fL (7.4-10.4); Platelet Count 327 10^3/cmm (130-400); Red Blood Count 4.91 10^6/uL (4.1-5.3); Red Cell Distribution Width 18.4 % (12.1-15.1)
[2020-11-18 10:29] LABS: Absolute Eosinophils 0.5 10^3/cmm (0.0-0.7); Absolute Neutrophil 1.5 10^3/cmm (1.4-6.5); Absolute Segmented Neutrophil 1.4 10/cmm (1.6-7.1); Band Neutrophils Absolute 0.1 10^3/cmm (0.0-1.2); Eosinophils 11 %; Lymphocytes 31 %; Lymphocytes Absolute 1.7 10^3/cmm (1.2-3.4); Monocytes Absolute 1.3 10^3/cmm (0.1-0.6); Platelet Estimate Normal (Normal); Segmented Neutrophils 27 %; Total Cells Counted 100 (0-100)
[2020-11-18] MEDS: palonosetron 0.25 mg/5 mL SDV IVP (11:10)
[2020-11-18] MEDS: dextrose 5% 250 ML 75 ML IV (11:10)
--- NOTE | 2020-11-18 17:11 | ONC FU_ITS ---
Dr. Storey follow up note Patient: Amadou Pan < Unit #: [id number]: 1965 Dicatated By: Nikia Storey M.D.Date of Visit:Nov 18, 2020 Onc Med Follow-up/Prog Note History of Present Illness: Mr. Amadou Pan, is a 55-year-old gentleman with over a year long history of bleeding per rectum and now stool incontinence for the last 6 to 8 months was referred to Dr. Sales underwent colonoscopy on April 01, 2020 which shows presence of annular masslike lesion 1 cm from anal verge and extends about 9 cm proximally with partial obstruction, and biopsy was done which showed fragments of necrotic colonic mucosa with a dysplastic colonic epithelium suspicious for neoplastic process thus on April 13, 2020, low rectal/anal mass biopsy was repeated final pathology report came back moderately differentiated invasive adenocarcinoma, CEA checked on April 01, 2020 was 17.1, prior to that CT scan of abdomen pelvis was done in October 2019 which showed bowel wall thickening in the rectum with inflammation and shotty reactive adenopathy Liver no mass seen Past medical history significant for mild renal insufficiency, hyperglycemia, proctitis, stool incontinence, hypertension, Patient smoke a pack a day and take alcohol occasionally. Patient denies any history of jaundice weight loss due to poor appetite, no fever chills, no nausea or vomiting, no hemoptysis or hematemesis, no dysuria, no new bony pains Started on total neoadjuvant therapy with FOLFOX, times 6-8 cycle on September 09, 2020, followed by oral Xeloda concurrent with radiation therapy followed by surgical evaluation, Follow-up CT scan of abdomen pelvis done because of persistent lower abdominal pain, on November 13, 2020 which shows diffuse circumferential wall thickening involving the rectum extending into the distal sigmoid. Associated luminal narrowing. Size about 7 cm, no focal mass or lesion seen. No inguinal or pelvic lymphadenopathy. No abdominal lymphadenopathy. Small left adrenal nodule measuring 8 mm probably small adenoma. A few small splenic low-attenuation lesion likely splenic cysts. . Came for follow-up, denies any specific complaints except off and on lower pelvic pain but now improving, no melena hematochezia, no hemoptysis hematemesis, no jaundice, no peripheral neuropathy, no mouth sores, no skin rash, tolerating systemic therapy with FOLFOX well Medications: Catapres (0.1 mg) Tablet Oral b.i.d., LORazepam 0.5 - 1 Tablet (of 1 mg) Oral t.i.d. PRN, Mouthwash Compounding Base 2 mL Liquid Oral t.i.d. & at bedtime, oxyCODONE-Acetaminophen 1 - 2 Tablet (of 5-325 mg) Oral q 6 to 8 hours PRN, Prochlorperazine Maleate 1 Tablet (of 10 mg) Oral q 4 hours PRN Allergies: No Known Allergies. Review of Systems: Review of Systems is not available for this patient. Vital Signs: Performed on Nov 18, 2020 08:32 Height - 66.00 in Weight - 153.4 lbs (LOW) BSA - 1.79 sq.m BMI - 24.76 Temperature - 97.8 F (LOW) Pulse - 105 /min (HIGH) Respiration - 18 /min BP - 161/120 mm(hg) (HIGH) O2 Sat - 98 % Pain - 7 Fatigue - 6 Performance Status: 0 - Fully active, able to carry on all predisease activities without restrictions. (ECOG) Physical Examination: ENMT - No mouth sores, no thrush, no jaundice, Respiratory - Lungs are clear to auscultation, Cardiovascular - Regular rate and rhythm of heart, Abdomen - Soft, bowel sounds present, Extremities - No visible edema. Lab/Imaging: Most recent lab results are not available for this patient. 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 With chronic off and on rectal bleeding and stool incontinence of 1 year duration CEA checked on April 01, 2020 was 17.1 Hypertension Uncontrolled glucose level Mild renal insufficiency Chronic smoking Patient was referred to colorectal surgeon and [employer] for evaluation and for divergent colostomy but somehow it was not done, case was discussed with Dr. Sales local surgeon regarding diversion colostomy as patient was having liquid stools but patient decided not to proceed with surgery rather with treatment soStarted on total new adjuvant therapy, which include FOLFOX x6-8 cycles followed by concurrent combined chemoradiation with Xeloda, patient started first dose of FOLFOX on September 09, 2020 Plan: Discussed with patient regarding his labs white blood count 4.2 hemoglobin 13.9 hematocrit 43.5 platelets 340,000 CMP within normal limits Clinically, patient doing well with no new signs symptom suggestive of disease progression, tolerating neoadjuvant therapy with FOLFOX well, will proceed with next cycle #5/6 today and then he will return to clinic in 2 weeks with CBC CMP His follow-up CT scan of abdominal pelvis which was done because of his persistent off and on lower pelvic pain shows good response, his rectal mass has decreased in size to 7 cm compared to 10.5 seen on MRI scan done prior to neoadjuvant therapy Signed By: Nikia Storey M.D. <<Signature on File>>
[2020-12-01 09:37] LABS: Basophils % 0.3 %; Eosinophils # 0.1 10^3/uL (0.0-0.8); Eosinophils % 1.2 %; Hematocrit 36.1 % (42.0-52.0); Hemoglobin 11.7 g/dL (11.7-16.6); Lymphocytes # 1.9 10^3/uL (0.8-4.8); Lymphocytes % 28.5 %; Mean Corpuscular HGB Conc 32.4 g/dL (30.0-36.0); Mean Corpuscular Hemoglobin 27.7 pg (28.0-34.0); Mean Corpuscular Volume 85.5 fl (80-94); Mean Platelet Volume 9.6 fL (7.4-10.4); Monocytes # 0.7 10^3/uL (0.2-0.9); Monocytes % 9.9 %; Neutrophils # 3.92 10^3/uL (1.8-7.7); Neutrophils % 59.9 %; Nucleated Red Blood Cells % 0 %; Platelet Count 130 10^3/cmm (130-400); Red Blood Count 4.22 10^6/uL (4.1-5.3); Red Cell Distribution Width 17.4 % (12.1-15.1); White Blood Count 6.6 10^3/uL (4.0-10.0)
[2020-12-01 10:03] LABS: Alanine Aminotransferase 9 U/L (0-41); Albumin Level 3.7 g/dL (3.5-5.2); Alkaline Phosphatase 58 IU/L (40-130); Anion Gap 13.5 (5-19); Aspartate Amino Transferase 15 U/L (0-40); Blood Urea Nitrogen 7 mg/dL (6-20); Calcium 8.9 mg/dL (8.5-10.5); Carbon Dioxide 25 mmol/L (22-29); Chloride 101 mmol/L (98-107); Globulin 2.8 g/dL (1.3-4.6); Glomerular Filtration Rate 116.7 mL/min (90-130); Glucose 91 mg/dL (65-115); Osmolality Calculated 280 mOsm/kg (285-295); Potassium 3.5 mmol/L (3.5-5.1); Sodium 136 mmol/L (136-145); Total Bilirubin 0.3 mg/dL (0.15-1.2); Total Protein 6.5 g/dL (6.6-8.7)
[2020-12-02] MEDS: dextrose 5% 250 ML 75 ML IV (10:22)
[2020-12-02] MEDS: palonosetron 0.25 mg/5 mL SDV IVP (10:22)
--- NOTE | 2020-12-02 11:01 | ONC FU_ITS ---
Dr. Storey follow up note Patient: Amadou Pan < Unit #: [id number]: [id number] Dicatated By: Nikia Storey M.D.Date of Visit:Dec 02, 2020 Onc Med Follow-up/Prog Note History of Present Illness: Mr. Amadou Pan, is a 55-year-old gentleman with over a year long history of bleeding per rectum and now stool incontinence for the last 6 to 8 months was referred to Dr. Sales underwent colonoscopy on April 01, 2020 which shows presence of annular masslike lesion 1 cm from anal verge and extends about 9 cm proximally with partial obstruction, and biopsy was done which showed fragments of necrotic colonic mucosa with a dysplastic colonic epithelium suspicious for neoplastic process thus on April 13, 2020, low rectal/anal mass biopsy was repeated final pathology report came back moderately differentiated invasive adenocarcinoma, CEA checked on April 01, 2020 was 17.1, prior to that CT scan of abdomen pelvis was done in October 2019 which showed bowel wall thickening in the rectum with inflammation and shotty reactive adenopathy Liver no mass seen Past medical history significant for mild renal insufficiency, hyperglycemia, proctitis, stool incontinence, hypertension, Patient smoke a pack a day and take alcohol occasionally. Patient denies any history of jaundice weight loss due to poor appetite, no fever chills, no nausea or vomiting, no hemoptysis or hematemesis, no dysuria, no new bony pains Started on total neoadjuvant therapy with FOLFOX, times 6-8 cycle on September 09, 2020, followed by oral Xeloda concurrent with radiation therapy followed by surgical evaluation, Follow-up CT scan of abdomen pelvis done because of persistent lower abdominal pain, on November 13, 2020 which shows diffuse circumferential wall thickening involving the rectum extending into the distal sigmoid. Associated luminal narrowing. Size about 7 cm, no focal mass or lesion seen. No inguinal or pelvic lymphadenopathy. No abdominal lymphadenopathy. Small left adrenal nodule measuring 8 mm probably small adenoma. A few small splenic low-attenuation lesion likely splenic cysts. Came for follow-up, denies any specific complaints, no fever chills, no nausea or vomiting, no diarrhea constipation, no melena or hematochezia, no more stool incontinence. But off and on lower pelvic pain, under control with current pain medication denies any peripheral neuropathy tolerating FOLFOX well otherwise Medications: Catapres (0.1 mg) Tablet Oral b.i.d., LORazepam 0.5 - 1 Tablet (of 1 mg) Oral t.i.d. PRN, Mouthwash Compounding Base 2 mL Liquid Oral t.i.d. & at bedtime, oxyCODONE-Acetaminophen 1 - 2 Tablet (of 5-325 mg) Oral q 6 to 8 hours PRN, Prochlorperazine Maleate 1 Tablet (of 10 mg) Oral q 4 hours PRN Allergies: No Known Allergies. Review of Systems: Review of Systems is not available for this patient. Vital Signs: Vitals are not available for this patient. Performance Status: 0 - Fully active, able to carry on all predisease activities without restrictions. (ECOG) Physical Examination: ENMT - No mouth sores but poor oral hygiene, no thrush, no jaundice, Respiratory - Lungs are clear to auscultation , Cardiovascular - Regular rate and rhythm of heart, Abdomen - Soft, bowel sounds present, Extremities - No visible edema. Lab/Imaging: Most recent lab results are not available for this patient. 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 With chronic off and on rectal bleeding and stool incontinence of 1 year duration CEA checked on April 01, 2020 was 17.1 Hypertension Uncontrolled glucose level Mild renal insufficiency Chronic smoking Patient was referred to colorectal surgeon and [place] for evaluation and for divergent colostomy but somehow it was not done, case was discussed with Dr. Sales local surgeon regarding diversion colostomy as patient was having liquid stools but patient decided not to proceed with surgery rather with treatment soStarted on total new adjuvant therapy, which include FOLFOX x6-8 cycles followed by concurrent combined chemoradiation with Xeloda, patient started first dose of FOLFOX on September 09, 2020 Plan: Discussed with patient regarding his labs white blood count 6.6 hemoglobin 11.7 hematocrit 36.1 platelets 130,000 CMP within normal limits Clinically, patient doing well with no new signs symptom suggestive of disease progression, tolerating neoadjuvant therapy with FOLFOX well, will proceed with cycle #6/6 of FOLFOX today, with that he will conclude his neoadjuvant chemotherapy and then will refer him to radiation oncology for neoadjuvant combined chemoradiation with oral Xeloda, discussed with patient regarding benefit/side effect related to Xeloda including but not limited to bone marrow suppression, nausea vomiting, mouth sores, diarrhea, skin rash, jaundice, hand-foot syndrome, further teaching will be done by chemotherapy nurse. We will obtain approval from his insurance prior to starting oral Xeloda concurrent with radiation therapy. He will return to clinic 1 week after starting combined chemoradiation with CBC CMP Signed By: Nikia Storey M.D. <<Signature on File>>
[2020-12-02 11:49] LABS: Thyroid Stimulating Hormone 2.75 uIU/mL (0.27-4.20)
== END 2020-12-03 23:59 | disposition home or self-care (01) ==
LOC: ONCMED 06:26
PROVIDERS: PCP Family Medicine Adult Medicine; Visit Provider Internal Medicine Hematology & Oncology
DX: Z51.11 Encounter for antineoplastic chemotherapy (principal); C20 Malignant neoplasm of rectum; K62.5 Hemorrhage of anus and rectum; I10 Essential (primary) hypertension; R73.09 Other abnormal glucose; N28.9 Disorder of kidney and ureter, unspecified; F17.210 Nicotine dependence, cigarettes, uncomplicated; Z92.3 Personal history of irradiation; Z92.21 Personal history of antineoplastic chemotherapy; Z79.899 Other long term (current) drug therapy
CPT/HCPCS: 36591; 80053; 82378; 84443; 85007; 85025; 85027; 96367; 96368; 96411; 96413; 96415; 96416; 96523; 99215; J0640; J1100; J2469; J9190; J9263